=== PATIENT | male | born 1940 | race African-American/Black ===

== ENCOUNTER 2021-06-22 14:05 | Emergency (ER) | payer OTHER ==
--- NOTE | 2021-06-22 15:48 | RAD REPORT ---
EXAM DESCRIPTION: RAD - Chest Single View - 06/22/2021 3:33 pm CLINICAL HISTORY: covid;Dyspnea Chest pain. COMPARISON: No comparisons FINDINGS: Portable technique limits examination quality. Moderate lower lobe lung opacities are present, greater on the right, likely related to COVID infecti on. The heart is normal in size. No displaced fractures.Evidence of previous right rotator cuff repai r.
[2021-06-22 16:01] LABS: Absolute Lymphocytes (CBC) 0.5 K/uL (0.7-4.9); Basophils % 0.1 % (0-1.3); Hematocrit 40.8 % (39.6-49.0); Lymphocytes % 4.4 % (15.3-44.8); MPV 8.2 fL (7.6-11.3)
[2021-06-22 16:18] LABS: ALT/SGPT 49 U/L (12-78); AST/SGOT 61 U/L (15-37); Alkaline Phosphatase 67 U/L (45-117); BUN Blood Urea Nitrogen 12 mg/dL (7-18); Bicarbonate 25 mmol/L (21-32); Bilirubin Direct 0.2 mg/dL (0-0.2); Bilirubin Total 0.6 mg/dL (0.2-1.0); Glucose Level 135 mg/dL (74-106); Magnesium 2.1 mg/dL (1.8-2.4); Potassium 3.5 mmol/L (3.5-5.1); Protein, Total 7.7 g/dL (6.4-8.2); Sodium Level 126 mmol/L (136-145)
[2021-06-22] MEDS ORDERED: CASIRIVIMAB/IMDEVIMAB 10 ML VIAL ONE (16:43)
[2021-06-22] MEDS ORDERED: NA CHLORIDE 0.9% 250 ML ONE (16:43)
--- NOTE | 2021-06-22 18:11 | ER ---
Nurse's Notes [facility] Name: Megan Cardoso Age: 80 yrs Sex: Male : 1940 Arrival Date: 06/22/2021 Time: 14:11 Bed 20 Private MD: Diagnosis: Pneumonia due to SARS-associated coronavirus Presentation: 06/22 14:37 Chief complaint: Patient states: SOB, Cough x 7 days. COVID + 06/20. Coronavirus kg screen: Vaccine status: Patient reports receiving the 2nd dose of the covid vaccine. Date October 18, 2020 [employer] Patient reports receiving the 1st dose of the Covid vaccine. Date October 28, 2020 [employer] Client denies travel out of the [place] in the last 14 days. cough unrelated to allergies, shortness of breath, Client presents with at least one sign or symptom that may indicate coronavirus-19. Standard/surgical mask placed on the client. Provider contacted for isolation considerations. Client reports previous positive COVID test result. Date of collection: June 20, 2021. Ebola Screen: Patient negative for fever greater than or equal to 101.5 degrees Fahrenheit, and additional compatible Ebola Virus Disease symptoms Patient denies exposure to infectious person. Patient denies travel to an Ebola-affected area in the 21 days before illness onset. Initial Sepsis Screen: Does the patient meet any 2 criteria? No. Patient's initial sepsis screen is negative. Does the patient have a suspected source of infection? No. Patient's initial sepsis screen is negative. Risk Assessment: Do you want to hurt yourself or someone else? Patient reports no desire to harm self or others. Onset of symptoms was June 19, 2021. 14:37 Method Of Arrival: Ambulatory kg 14:37 Acuity: CHAVA 3 kg Triage Assessment: 14:47 General: Appears in no apparent distress. Behavior is calm, cooperative, appropriate kg for age, quiet. 14:47 Respiratory: Reports shortness of breath at rest on exertion cough that is Onset: The kg symptoms/episode began/occurred gradually, the patient has mild shortness of breath. Historical: - Allergies: 14:41 No Known Allergies; kg - Home Meds: 14:41 HCTZ [Active]; metformin Oral [Active]; kg - PMHx: 14:41 Hypertensive disorder; Hypercholesterolemia; Diabetes mellitus; kg - PSHx: 14:41 None; kg - Immunization history:: Adult Immunizations up to date, Client reports receiving the 2nd dose of the Covid vaccine, Date received: November 18, 2020 [employer] Client reports receiving the 1st dose of the Covid vaccine, October 28, 2020 [employer]. - Social history:: Smoking status: Patient denies any tobacco usage or history of. Screenin:45 Abuse screen: Denies threats or abuse. Denies injuries from another. Nutritional kg screening: No deficits noted. Tuberculosis screening: No symptoms or risk factors identified. Fall Risk None identified. Assessment: 14:45 Pain: Denies pain. Cardiovascular: No deficits noted. Respiratory: Airway is patent kg Trachea midline Respiratory effort is even, Respiratory pattern is tachypnea. 15:01 Reassessment: Patient and/or family updated on plan of care and expected duration. Pain es2 level reassessed. Patient is alert, oriented x 3, equal unlabored respirations, skin warm/dry/pink. Patient denies pain at this time. General: Appears well groomed, well developed, well nourished, Behavior is calm, cooperative, appropriate for age. Neuro: Level of Consciousness is awake, alert, obeys commands, Oriented to person, place, time, situation, Appropriate for age Gait is steady, Speech is normal. Cardiovascular: Rhythm is sinus tachycardia. Respiratory: Airway is patent Respiratory effort is even, Respiratory pattern is regular. : No signs and/or symptoms were reported regarding the genitourinary system. EENT: No signs and/or symptoms were reported regarding the EENT system. Derm: No signs and/or symptoms reported regarding the dermatologic system. Vital Signs: 14:37 BP 151 / 74; Pulse 112; Resp 35 S; Temp 98.9(TE); Pulse Ox 92% on R/A; Weight 82.55 kg kg (R); Height 5 ft. 8 in. (172.72 cm) (R); Pain 0/10; 15:00 BP 148 / 4; Pulse 110; Resp 28; Pulse Ox 97% on R/A; es2 17:11 BP 143 / 63; Pulse 100; Resp 24; Pulse Ox 97% on R/A; es2 18:53 BP 155 / 72; Pulse 102; Resp 28; Pulse Ox 94% on R/A; es2 14:37 Body Mass Index 27.67 (82.55 kg, 172.72 cm) kg ED Course: 14:11 Patient arrived in ED. mr 14:41 Triage completed. kg 14:45 Patient has correct armband on for positive identification. Placed in gown. Bed in low kg position. Call light in reach. Side rails up X2. Adult w/ patient. 14:45 No provider procedures requiring assistance completed. kg 14:54 Joceline Guerrero RN is Primary Nurse. es2 15:03 Arm band placed on. es2 15:05 Angel Bro PA is PHCP. jr8 15:05 Javier Cervantes MD is Attending Physician. jr8 15:33 XRAY Chest (1 view) In Process Unspecified. EDMS 15:58 Inserted saline lock: 20 gauge in right antecubital area, using aseptic technique. es2 Blood collected. 15:59 Basic Metabolic Panel Sent. es2 15:59 CBC with Diff Sent. es2 15:59 LFT's Sent. es2 15:59 Magnesium Sent. es2 19:51 IV discontinued, intact, bleeding controlled, No redness/swelling at site. bs2 Administered Medications: 17:04 Drug: REGEN-COV Dose Pack 120 mg/mL-120 mg/mL (EUA) 600 mg Route: IV; Rate: calculated es2 rate; Site: right antecubital; 18:04 Follow up: Response: No adverse reaction; IV Status: Completed infusion es2 18:04 Drug: NS 0.9% 1000 ml Route: IV; Rate: 1000 ml; Site: right antecubital; es2 18:54 Follow up: Response: No adverse reaction es2 18:54 Follow up: IV Status: Completed infusion es2 Outcome: 18:10 Discharge ordered by . jr8 19:51 Discharged to home ambulatory, with family. bs2 19:51 Condition: improved 19:51 Discharge instructions given to patient, family, Instructed on discharge instructions, follow up and referral plans. Demonstrated understanding of instructions, follow-up care. 19:52 Patient left the ED. bs2 Signatures: Dispatcher [employer] [facility] Kylie Marquez mr Angel Bro PA PA jr8 Madelaine Silverio RN RN kg Teresa Guerrero RN RN bs2 Joceline Guerrero RN RN es2
--- NOTE | 2021-06-22 18:11 | EDPHYS ---
Physician Documentation [facility] Name: Megan Cardoso Age: 80 yrs Sex: Male : 1940 Arrival Date: 06/22/2021 Time: 14:11 Bed 20 Private MD: ED Physician Javier Cervantes HPI: 06/22 15:41 This 80 yrs old Black Male presents to ER via Ambulatory with complaints of Covid+, jr8 Shortness Of Breath, Cough. 15:41 The patient has shortness of breath with light activity. Onset: The symptoms/episode jr8 began/occurred gradually, 1 week(s) ago. Duration: The symptoms are continuous. The patient's shortness of breath is aggravated by light activity, walking. Associated signs and symptoms: The patient has no apparent associated signs or symptoms. Severity of symptoms: At their worst the symptoms were moderate in the emergency department the symptoms are unchanged. The patient has not experienced similar symptoms in the past. The patient has not recently seen a physician. Stated that he was recently diagnosed with Covid but has had symptoms for the past week. Came in today because he has had continued shortness of breath with light activity.. Historical: - Allergies: 14:41 No Known Allergies; kg - Home Meds: 14:41 HCTZ [Active]; metformin Oral [Active]; kg - PMHx: 14:41 Hypertensive disorder; Hypercholesterolemia; Diabetes mellitus; kg - PSHx: 14:41 None; kg - Immunization history:: Adult Immunizations up to date, Client reports receiving the 2nd dose of the Covid vaccine, Date received: November 18, 2020 [employer] Client reports receiving the 1st dose of the Covid vaccine, October 28, 2020 [employer]. - Social history:: Smoking status: Patient denies any tobacco usage or history of. ROS: 15:41 Eyes: Negative for injury, pain, redness, and discharge, ENT: Negative for injury, jr8 pain, and discharge, Neck: Negative for injury, pain, and swelling, Cardiovascular: Negative for chest pain, palpitations, and edema, Abdomen/GI: Negative for abdominal pain, nausea, vomiting, diarrhea, and constipation, Back: Negative for injury and pain, MS/Extremity: Negative for injury and deformity, Skin: Negative for injury, rash, and discoloration, Neuro: Negative for headache, weakness, numbness, tingling, and seizure. 15:41 Respiratory: Positive for cough, shortness of breath. Exam: 15:41 Constitutional: This is a well developed, well nourished patient who is awake, alert, jr8 and in no acute distress. Eyes: Pupils equal round and reactive to light, extra-ocular motions intact. Lids and lashes normal. Conjunctiva and sclera are non-icteric and not injected. Cornea within normal limits. Periorbital areas with no swelling, redness, or edema. ENT: Nares patent. No nasal discharge, no septal abnormalities noted. Tympanic membranes are normal and external auditory canals are clear. Oropharynx with no redness, swelling, or masses, exudates, or evidence of obstruction, uvula midline. Mucous membranes moist. Neck: Trachea midline, no thyromegaly or masses palpated, and no cervical lymphadenopathy. Supple, full range of motion without nuchal rigidity, or vertebral point tenderness. No Meningismus. Abdomen/GI: Soft, non-tender, with normal bowel sounds. No distension or tympany. No guarding or rebound. No evidence of tenderness throughout. Back: No spinal tenderness. No costovertebral tenderness. Full range of motion. Skin: Warm, dry with normal turgor. Normal color with no rashes, no lesions, and no evidence of cellulitis. MS/ Extremity: Pulses equal, no cyanosis. Neurovascular intact. Full, normal range of motion. Neuro: Awake and alert, GCS 15, oriented to person, place, time, and situation. Cranial nerves II-XII grossly intact. Motor strength 5/5 in all extremities. Sensory grossly intact. 15:41 Cardiovascular: Rate: tachycardic, Rhythm: regular, Pulses: Pulses are 2+ in right radial artery and left radial artery. Heart sounds: normal, normal S1and S2, no S3 or S4, no murmur, no rub, no gallop, Edema: is not appreciated. 15:41 Respiratory: the patient does not display signs of respiratory distress, Respirations: tachypnea, that is mild, Breath sounds: are clear throughout, no bronchial sounds, no decreased breath sounds, no rales, rhonchi, no stridor, no wheezing. Vital Signs: 14:37 BP 151 / 74; Pulse 112; Resp 35 S; Temp 98.9(TE); Pulse Ox 92% on R/A; Weight 82.55 kg kg (R); Height 5 ft. 8 in. (172.72 cm) (R); Pain 0/10; 15:00 BP 148 / 4; Pulse 110; Resp 28; Pulse Ox 97% on R/A; es2 17:11 BP 143 / 63; Pulse 100; Resp 24; Pulse Ox 97% on R/A; es2 18:53 BP 155 / 72; Pulse 102; Resp 28; Pulse Ox 94% on R/A; es2 14:37 Body Mass Index 27.67 (82.55 kg, 172.72 cm) kg MDM: 15:06 Patient medically screened. 18:09 Data reviewed: vital signs, nurses notes, lab test result(s), radiologic studies, [facility] films, and as a result, I will discharge patient. Data interpreted: Pulse oximetry: on room air is 97 %. Interpretation: normal. Counseling: I had a detailed discussion with the patient and/or guardian regarding: the historical points, exam findings, and any diagnostic results supporting the discharge/admit diagnosis, lab results, radiology results, the need for outpatient follow up, a family practitioner, to return to the emergency department if symptoms worsen or persist or if there are any questions or concerns that arise at home. 06/22 15:11 Order name: Basic Metabolic Panel; Complete Time: 16:19 06/22 15:11 Order name: CBC with Diff 06/22 15:11 Order name: LFT's; Complete Time: 16:19 06/22 15:11 Order name: Magnesium; Complete Time: 16:19 06/22 15:11 Order name: XRAY Chest (1 view); Complete Time: 16:08 06/22 15:11 Order name: EKG; Complete Time: 15:12 06/22 15:11 Order name: Cardiac monitoring; Complete Time: 15:40 06/22 15:11 Order name: EKG - Nurse/Tech; Complete Time: 15:39 06/22 15:11 Order name: IV Saline Lock; Complete Time: 15:59 06/22 15:11 Order name: Labs collected and sent; Complete Time: 15:59 06/22 15:11 Order name: O2 Per Protocol 06/22 15:11 Order name: O2 Sat Monitoring jr8 Administered Medications: 17:04 Drug: REGEN-COV Dose Pack 120 mg/mL-120 mg/mL (EUA) 600 mg Route: IV; Rate: calculated es2 rate; Site: right antecubital; 18:04 Follow up: Response: No adverse reaction; IV Status: Completed infusion es2 18:04 Drug: NS 0.9% 1000 ml Route: IV; Rate: 1000 ml; Site: right antecubital; es2 18:54 Follow up: Response: No adverse reaction es2 18:54 Follow up: IV Status: Completed infusion es2 Disposition: 06/23 11:14 Co-signature as Attending Physician, Javier Cervantes MD I agree with the assessment and kdr plan of care. Disposition Summary: 06/22/21 18:10 Discharge Ordered Location: Home jr8 Problem: new jr8 Symptoms: have improved jr8 Condition: Stable jr8 Diagnosis - Pneumonia due to SARS-associated coronavirus jr8 Followup: jr8 - With: Private Physician - When: 5 - 6 days - Reason: Recheck today's complaints, Continuance of care, Re-evaluation by your physician Discharge Instructions: - Discharge Summary Sheet jr8 - COVID-19 jr8 Forms: - Medication Reconciliation Form jr8 - Thank You Letter jr8 - Antibiotic Education jr8 - Prescription Opioid Use jr8 Signatures: Dispatcher [employer] EDJavier Ross MD MD kdr Roszak, Josh, PA PA jr8 Madelaine Silverio RN RN Joceline Beltran RN RN es2
[2021-06-22] MEDS ORDERED: NA CHLORIDE 0.9% 1,000 ML ONE (18:24)
[2021-06-22 20:10] VITALS: TEMP 98.9
[2021-06-22 20:13] VITALS: BP 155/72; O2SAT 94
[2021-06-22 21:46] LABS: Blood Morphology Comment NOT SEEN (NOT SEEN); Platelet Estimate ADEQ; White Blood Cell Scan OK (OK)
--- NOTE | 2021-06-23 15:58 | EKG ---
Test Date: 2021-06-22 Test Time: 15:39:02 Landfill Attendant: NAMAN MEASUREMENT RESULTS: Intervals: Rate: 108 [place]: 152 QRSD: 134 QT: 344 QTc: 460 [place]: P: 61 [place]: 152 QRS: 62 T: 46 INTERPRETIVE STATEMENTS: Sinus tachycardia Possible Left atrial enlargement Right bundle branch block Abnormal ECG Compared to ECG 03/13/2007 10:10:00 Right bundle-branch block now present Sinus rhythm no longer present T-wave abnormality no longer present Possible ischemia no longer present Electronically Signed On 06-23-21 15:56:27 CDT by Villa Akbar
== END 2021-06-22 19:52 | disposition home or self-care (01) ==
LOC: ER 14:05
DX: U07.1 COVID-19 (principal); J12.82 Pneumonia due to coronavirus disease 2019; I10 Essential (primary) hypertension; E11.9 Type 2 diabetes mellitus without complications
CPT/HCPCS: 96365; 96361; 93005; 85025; 80048; 36415; 83735; 80076; 71045; 99284; J7050; J7030

== ENCOUNTER 2021-06-25 14:37 | Inpatient (IN) | payer OTHER ==
[2021-06-25 15:27] LABS: Absolute Lymphocytes (CBC) 1.2 K/uL (0.7-4.9); Basophils % 0.1 % (0-1.3); Hematocrit 42.1 % (39.6-49.0); Lymphocytes % 10.2 % (15.3-44.8); MPV 8.4 fL (7.6-11.3); RBC Red Blood Cell Count 4.99 M/uL (4.33-5.43)
--- NOTE | 2021-06-25 15:41 | RAD REPORT ---
EXAM DESCRIPTION: RAD - Chest Single View - 06/25/2021 3:33 pm CLINICAL HISTORY: SOB COMPARISON: Chest Single View dated 06/22/2021 FINDINGS: Lines: None. Lungs: Increasing basilar airspace disease bilaterally. Pleural: No significant pleural effusions or pneumothorax. Cardiac: The heart size is within normal limits. Bones: No acute fractures. Other: IMPRESSION: Increasing basilar airspace disease compared 06/22/2021 concerning for pneumonia.
[2021-06-25 15:51] LABS: ALT/SGPT 94 U/L (12-78); AST/SGOT 96 U/L (15-37); Albumin 2.6 g/dL (3.4-5.0); Alkaline Phosphatase 106 U/L (45-117); BUN Blood Urea Nitrogen 9 mg/dL (7-18); Bicarbonate 23 mmol/L (21-32); Bilirubin Direct 0.3 mg/dL (0-0.2); Bilirubin Total 0.9 mg/dL (0.2-1.0); Glucose Level 164 mg/dL (74-106); Lipase 252 U/L (73-393); Potassium 3.3 mmol/L (3.5-5.1); Protein, Total 7.7 g/dL (6.4-8.2); Sodium Level 125 mmol/L (136-145); Troponin (Emerg Dept Use Only) < 0.02 ng/mL (0.0-0.045)
[2021-06-25] MEDS ORDERED: ASPIRIN 325 MG TAB ONE (15:58)
[2021-06-25] MEDS ORDERED: NA CHLORIDE 0.9% 1,000 ML ONE ×2 (15:59→17:15)
--- NOTE | 2021-06-25 16:05 | ER ---
Nurse's Notes [facility] Name: Megan Cardoso Age: 80 yrs Sex: Male : 1940 Arrival Date: 06/25/2021 Time: 14:37 Bed 17 Private MD: Diagnosis: Pneumonia due to SARS-associated coronavirus;Hypoxia Presentation: 06/25 14:40 Chief complaint: Cough, SOB, N/D, and fever x 10 days, tested COVID + 06/21, c/o hb worsening SOB x 2 days. Today home SpO2 72%, TMAX 101. Coronavirus screen: Client presents with at least one sign or symptom that may indicate coronavirus-19. Client reports previous positive COVID test result. Ebola Screen: No symptoms or risks identified at this time. Onset of symptoms was June 14, 2021. 14:40 Method Of Arrival: Wheelchair hb 14:40 Acuity: CHAVA 2 hb 14:43 Initial Sepsis Screen: Does the patient meet any 2 criteria?. Risk Assessment: Do you hb want to hurt yourself or someone else? Patient reports no desire to harm self or others. 20:37 Initial Sepsis Screen: Does the patient have a suspected source of infection? Yes: bs2 Other: Covid pneumonia. Triage Assessment: 20:37 General: Appears in no apparent distress. distressed, uncomfortable, obese, well bs2 groomed, well developed, well nourished. Respiratory: Reports shortness of breath at rest Onset: The symptoms/episode began/occurred gradually, the patient has moderate shortness of breath. Historical: - Allergies: 14:43 No Known Allergies; hb - Home Meds: 14:43 hctz [Active]; Metformin Oral [Active]; hb - PMHx: 14:43 diabetes mellitus; Hypercholesterolemia; Hypertensive disorder; hb - Immunization history:: Adult Immunizations up to date, Client reports receiving the 2nd dose of the Covid vaccine. - Social history:: Smoking status: Patient denies any tobacco usage or history of. Screenin:28 Abuse screen: Denies threats or abuse. Nutritional screening: No deficits noted. kh1 Tuberculosis screening: No symptoms or risk factors identified. Fall Risk None identified. No fall in past 12 months (0 pts). No secondary diagnosis (0 pts). IV access (20 points). Ambulatory Aid- None/Bed Rest/Nurse Assist (0 pts). Gait- Weak (10 pts.). Mental Status- Oriented to own ability (0 pts). Assessment: 15:27 General: Appears distressed, uncomfortable, Behavior is calm, cooperative, appropriate kh1 for age. Pain: Denies pain. Cardiovascular: No deficits noted. Reports shortness of breath. Respiratory: Airway is patent Respiratory effort is even, labored, Respiratory pattern is regular, 16:38 Reassessment: Patient appears in no apparent distress at this time. No changes from kh1 previously documented assessment. Patient and/or family updated on plan of care and expected duration. Pain level reassessed. Patient is alert, oriented x 3, equal unlabored respirations, skin warm/dry/pink. Patient states feeling better. Patient states symptoms have improved. 20:38 Cardiovascular: Rhythm is regular. bs2 Vital Signs: 14:40 BP 182 / 81; Pulse 120; Resp 28; Temp 99.4; Pulse Ox 66% on R/A; Pain 0/10; hb 15:29 BP 182 / 81; Pulse 120; Resp 28; Temp 99.4; Pulse Ox 99% on Non-rebreather mask; kh1 16:46 BP 175 / 104; Pulse 90; Resp 28; Temp 99.0; Pulse Ox 95% on NC; kh1 ED Course: 14:37 Patient arrived in ED. as 14:42 Triage completed. hb 14:43 Arm band placed on. hb 14:54 Carter Quintanilla NP is PHCP. pm1 14:54 Derek Jacobs MD is Attending Physician. pm1 15:08 EKG done, by ED staff, reviewed by Carter Quintanilla NP. em1 15:27 Sheridan Maria is Primary Nurse. kh1 15:28 No provider procedures requiring assistance completed. Inserted saline lock: 20 gauge kh1 in right antecubital area, using aseptic technique. Blood collected. 15:29 Blood Culture Sent. kh1 15:29 Basic Metabolic Panel Sent. kh1 15:30 BMP Sent. kh1 15:30 Blood Culture Adult (2) Sent. kh1 15:30 CXR XRAY Sent. kh1 15:30 C-Reactive Protein Sent. kh1 15:30 CBC with Diff Sent. kh1 15:30 D-Dimer Sent. kh1 15:30 Flu Sent. kh1 15:30 Ferritin Sent. kh1 15:30 LFT's Sent. kh1 15:30 Lactate Sent. kh1 15:30 Lipase Sent. kh1 15:30 PT-INR Sent. kh1 15:30 Procalcitonin Sent. kh1 15:30 Ptt, Activated Sent. kh1 15:30 Strep Sent. kh1 15:30 Troponin (emerg Dept Use Only) Sent. kh1 15:33 CXR XRAY In Process Unspecified. EDMS 16:04 Seven Butts DO is Hospitalizing Provider. pm1 16:39 Throat Culture Sent. kh1 16:39 D-Dimer Sent. kh1 16:39 PT-INR Sent. kh1 16:39 Ptt, Activated Sent. kh1 17:52 Marc Solorzano MD is Hospitalizing Provider. em1 20:37 Patient has correct armband on for positive identification. Bed in low position. bs2 housekeeper on. Pulse ox on. NIBP on. 20:38 Patient admitted, IV remains in place. bs2 20:38 CBC with Automated Diff Sent. bs2 Administered Medications: 15:56 Drug: NS 0.9% 1000 ml Route: IV; Rate: 1000 ml; Site: right antecubital; kh1 20:39 Follow up: IV Status: Completed infusion bs2 15:56 Drug: Aspirin 325 mg Route: PO; kh1 16:46 Drug: Potassium Effervescent Tablet 50 mEq Route: PO; kh1 20:39 Follow up: Response: No adverse reaction bs2 16:57 Drug: NS 0.9% 1000 ml Route: IV; Rate: 100 ml/hr; Site: right antecubital; kh1 20:39 Follow up: IV Status: Completed infusion bs2 Outcome: 16:04 Decision to Hospitalize by Provider. pm1 20:34 Admitted to Med/surg accompanied by nurse, via stretcher, room 409, with oxygen, with bs2 chart, Report called to Elizabeth Charge nurse took report 20:34 Condition: improved 20:34 Instructed on the need for admit. 21:47 Patient left the ED. lp1 Signatures: Dispatcher [employer] EDMS Jessie Liz Eric em1 Viridiana Lo RN RN lp1 Carter Quintanilla, PROFESSOR OF HISTORY PROFESSOR OF HISTORY pm1 Sheila Tovar RN RN hb Smith, Bridget, RN RN bs2 Sheridan Maria kh1
--- NOTE | 2021-06-25 16:05 | EDPHYS ---
Physician Documentation [facility] Name: Megan Cardoso Age: 80 yrs Sex: Male : 1940 Arrival Date: 06/25/2021 Time: 14:37 Bed 17 Private MD: ED Physician Derek Jacobs HPI: 06/25 15:02 This 80 yrs old Black Male presents to ER via Wheelchair with complaints of Shortness pm1 Of Breath - covid pneumonia. 15:02 The patient has shortness of breath at rest. Onset: The symptoms/episode began/occurred pm1 Patient went onset of Covid symptoms, cough and congestion, 11 days ago. Tested positive for Covid 4 days ago and seen in the ER here the following day. Patient was subsequently diagnosed with Covid pneumonia, administered Regeneron, and discharged home. Patient returned to the ER with complaints of shortness of breath and low oxygen pulse ox readings at home 70s to 80s. Duration: The symptoms are continuous, and are steadily getting worse. The patient's shortness of breath is alleviated by nothing. Associated signs and symptoms: Pertinent negatives: chest pain, nausea, vomiting, Diarrhea. Severity of symptoms: in the emergency department the symptoms are worse. The patient has been recently seen at the [facility] Emergency Department, this week, for similar complaints labs were performed, X-rays were performed. Historical: - Allergies: 14:43 No Known Allergies; hb - Home Meds: 14:43 hctz [Active]; Metformin Oral [Active]; hb - PMHx: 14:43 diabetes mellitus; Hypercholesterolemia; Hypertensive disorder; hb - Immunization history:: Adult Immunizations up to date, Client reports receiving the 2nd dose of the Covid vaccine. - Social history:: Smoking status: Patient denies any tobacco usage or history of. ROS: 15:02 Eyes: Negative for injury, pain, redness, and discharge, ENT: Negative for injury, pm1 pain, and discharge, Cardiovascular: Negative for chest pain, palpitations, and edema. 15:02 Abdomen/GI: Negative for abdominal pain, nausea, vomiting, diarrhea, and constipation, Back: Negative for injury and pain, MS/Extremity: Negative for injury and deformity, Skin: Negative for injury, rash, and discoloration, Neuro: Negative for headache, weakness, numbness, tingling, and seizure. 15:02 Constitutional: Positive for poor PO intake. 15:02 Respiratory: Positive for cough, shortness of breath. 15:02 All other systems are negative. Exam: 15:02 Constitutional: This is a well developed, well nourished patient who is awake, alert, pm1 and in no acute distress. Head/Face: Normocephalic, atraumatic. 15:02 Skin: Warm, dry with normal turgor. Normal color with no rashes, no lesions, and no evidence of cellulitis. MS/ Extremity: Pulses equal, no cyanosis. Neurovascular intact. Full, normal range of motion. 15:02 Cardiovascular: Rate: tachycardic, Rhythm: regular, Pulses: no pulse deficits are appreciated, Heart sounds: normal, normal S1and S2, Edema: is not appreciated. 15:02 Respiratory: mild respiratory distress is noted, Respirations: tachypnea, Breath sounds: decreased breath sounds, are located in both bases. 15:02 Abdomen/GI: Inspection: abdomen appears normal, Palpation: abdomen is soft and non-tender, in all quadrants. 15:02 Neuro: Exam negative for acute changes, Orientation: is normal, Mentation: is normal, Motor: is normal, moves all fours. Vital Signs: 14:40 BP 182 / 81; Pulse 120; Resp 28; Temp 99.4; Pulse Ox 66% on R/A; Pain 0/10; hb 15:29 BP 182 / 81; Pulse 120; Resp 28; Temp 99.4; Pulse Ox 99% on Non-rebreather mask; kh1 16:46 BP 175 / 104; Pulse 90; Resp 28; Temp 99.0; Pulse Ox 95% on NC; kh1 MDM: 15:02 ED course: Patient with diagnoses of Covid pneumonia 3 days ago. Therefore no pm1 antibiotic needed at this time. 15:08 Patient medically screened. pm1 15:54 Physician consultation: David Sosa regarding admission, patient's condition, in the pm1 emergency department to see patient at 15:54. 16:02 Data reviewed: vital signs. pm1 16:02 Counseling: I had a detailed discussion with the patient and/or guardian regarding: the pm1 historical points, exam findings, and any diagnostic results supporting the discharge/admit diagnosis, the need for further work-up and treatment in the hospital. 16:26 ED course: Patient does not want to be transferred to the [place]. He would like to be pm1 admitted to the hospital here. 06/25 14:56 Order name: BMP pm1 06/25 14:56 Order name: Blood Culture Adult (2) pm1 06/25 14:56 Order name: C-Reactive Protein; Complete Time: 16:11 pm1 06/25 14:56 Order name: CBC with Diff; Complete Time: 15:54 pm1 06/25 14:56 Order name: D-Dimer; Complete Time: 17:11 pm1 06/25 14:56 Order name: Ferritin; Complete Time: 16:11 pm1 06/25 14:56 Order name: Flu; Complete Time: 16:13 pm1 06/25 14:56 Order name: LFT's; Complete Time: 16:11 pm1 06/25 14:56 Order name: Lactate; Complete Time: 16:33 pm1 06/25 14:56 Order name: Lipase; Complete Time: 16:11 pm1 06/25 14:56 Order name: PT-INR; Complete Time: 17:11 pm1 06/25 14:56 Order name: Procalcitonin; Complete Time: 16:11 pm1 06/25 14:56 Order name: Ptt, Activated; Complete Time: 17:11 pm1 06/25 14:56 Order name: Strep; Complete Time: 16:11 pm1 06/25 14:56 Order name: Troponin (emerg Dept Use Only); Complete Time: 16:11 pm1 06/25 14:56 Order name: Urine Microscopic Only; Complete Time: 16:40 pm1 06/25 14:56 Order name: Basic Metabolic Panel; Complete Time: 16:11 EDMS 06/25 14:56 Order name: Blood Culture EDMS 06/25 15:33 Order name: COVID-19 : Document "Date of Symptom Onset" if Symptomatic. pm1 06/25 15:56 Order name: Throat Culture EDMS 06/25 16:59 Order name: SARS-COV-2 RT PCR; Complete Time: 17:11 EDMS 06/25 17:24 Order name: Comprehensive Metabolic Panel EDMS 06/25 17:24 Order name: Comprehensive Metabolic Panel EDNM 06/25 17:24 Order name: Comprehensive Metabolic Panel EDMS 06/25 17:24 Order name: Comprehensive Metabolic Panel EDMS 06/25 17:24 Order name: Lactate EDMS 06/25 17:24 Order name: Lactate EDMS 06/25 17:24 Order name: Lactate EDMS 06/25 17:24 Order name: Magnesium EDMS 06/25 14:56 Order name: CXR XRAY; Complete Time: 15:54 pm1 06/25 14:56 Order name: EKG; Complete Time: 14:57 pm1 06/25 14:56 Order name: Cardiac monitoring; Complete Time: 15:30 pm1 06/25 14:56 Order name: Droplet/Contact Precautions; Complete Time: 15:30 pm1 06/25 14:56 Order name: EKG - Nurse/Tech; Complete Time: 15:07 pm1 06/25 14:56 Order name: IV Start; Complete Time: 15:30 pm1 06/25 14:56 Order name: Labs collected and sent; Complete Time: 15:30 pm1 06/25 14:56 Order name: O2 Per Protocol; Complete Time: 15:30 pm1 06/25 14:56 Order name: O2 Sat Monitoring; Complete Time: 15:30 pm1 06/25 14:56 Order name: Urine Dipstick-Ancillary (obtain specimen); Complete Time: 15:30 pm1 06/25 17:24 Order name: Chest For Pe Angio; Complete Time: 18:10 EDMS 06/25 17:24 Order name: Regular EDMS 06/25 17:24 Order name: Magnesium EDMS 06/25 17:24 Order name: Magnesium EDMS 06/25 17:24 Order name: Magnesium EDMS 06/25 17:25 Order name: Urinalysis EDMS 06/25 17:25 Order name: CBC with Automated Diff EDMS 06/25 17:25 Order name: CBC with Automated Diff EDMS 06/25 17:25 Order name: CBC with Automated Diff EDMS 06/25 17:25 Order name: CBC with Automated Diff EDMS 06/25 18:22 Order name: Procalcitonin EDMS 06/25 19:00 Order name: Sodium Level EDMS 06/25 19:00 Order name: Potassium EDMS 06/25 19:11 Order name: Lactate Sepsis 2 HR Follow-up EDMS 06/25 21:31 Order name: Glucose, Ancillary Testing EDMS Administered Medications: 15:56 Drug: NS 0.9% 1000 ml Route: IV; Rate: 1000 ml; Site: right antecubital; kh1 20:39 Follow up: IV Status: Completed infusion bs2 15:56 Drug: Aspirin 325 mg Route: PO; kh1 16:46 Drug: Potassium Effervescent Tablet 50 mEq Route: PO; kh1 20:39 Follow up: Response: No adverse reaction bs2 16:57 Drug: NS 0.9% 1000 ml Route: IV; Rate: 100 ml/hr; Site: right antecubital; kh1 20:39 Follow up: IV Status: Completed infusion bs2 Disposition Summary: 06/25/21 16:04 Hospitalization Ordered Hospitalization Status: Inpatient Admission pm1 Location: Telemetry/MedSurg (Inpatient) pm1 Condition: Stable pm1 Problem: new pm1 Symptoms: have improved pm1 Bed/Room Type: Standard pm1 Room Assignment: [facility](06/25/21 17:47) eb Provider: Marc Solorzano(06/25/21 17:53) em1 Diagnosis - Pneumonia due to SARS-associated coronavirus pm1 - Hypoxia pm1 Forms: - Medication Reconciliation Form pm1 - SBAR form pm1 Addendum: 06/30/2021 02:58 Co-signature as Attending Physician, Derek Jacobs MD PA/CLINICAL IMPLEMENTATION SPECIALIST's history reviewed, m a2 patient interviewed, and examined. I agree with assessment and care plan and confirm the diagnosis (es) above. Signatures: Dispatcher [employer] EDNM Shorty Liz em1 Carter Quintanilla NP CLINICAL IMPLEMENTATION SPECIALIST pm1 Sheila Tovar RN RN Derek Jacobs MD MD ma2 Joceline Duvall Kecia 1 Teresa Guerrero RN bs2 Corrections: (The following items were deleted from the chart) 06/25 15:56 15:33 CORONAVIRUS ordered. EDNM EDMS 17:47 16:04 pm1 eb 17:53 16:04 [place] pm1 em1
[2021-06-25 16:19] LABS: Protime INR 1.11
[2021-06-25 16:34] LABS: Urine Bacteria <20 /HPF (NONE SEEN); Urine RBC <5 /HPF (NONE SEEN)
[2021-06-25 16:35] LABS: Urine Mucus 1+ /HPF (NONE SEEN)
[2021-06-25] MEDS ORDERED: POTASSIUM 25 MEQ EFFERV TAB ONE (17:07)
[2021-06-25] MEDS ORDERED: ONDANSETRON 4 MG/2 ML VIAL IV PRN ×2 (17:12→20:18)
[2021-06-25] MEDS ORDERED: ACETAMINOPHEN 500 MG TAB PO PRN ×2 (17:12→20:18)
[2021-06-25] MEDS ORDERED: NA CHLORIDE 0.9% 1,000 ML IV SCH (18:00)
--- NOTE | 2021-06-25 18:00 | P.HP ---
Certification for Inpatient Patient admitted to: Inpatient With expected LOS: >2 Midnights Patient will require the following post-hospital care: None Practitioner: I am a practitioner with admitting privileges, knowledge of patient current condition, hospital course, and medical plan of care. Services: Services provided to patient in accordance with Admission requirements found in Title 42 Section 412.3 of the Code of Federal Regulations Patient History Date of Service: 06/25/21 Primary Care Provider: Dr Herrera at [place] Reason for admission: Covid Pneumonia/ hypoxia History of Present Illness: Chest Single View - 06/25/2021 3:33 pm CLINICAL HISTORY: SOB COMPARISON: Chest Single View dated 06/22/2021 FINDINGS: Lines: None. Lungs: Increasing basilar airspace disease bilaterally. Pleural: No significant pleural effusions or pneumothorax. Cardiac: The heart size is within normal limits. Bones: No acute fractures. Other: IMPRESSION: Increasing basilar airspace disease compared 06/22/2021 concerning for pneumonia. This is a 80-year-old black male who came in with Covid pneumonia. He first developed covid like symptoms on June 14. On 21 June he was tested for Covid and found to be positive. On the he received monoclonal antibodies at this facility. He presents today with O2 sats of 66% on room air. He had a temp of 99 on arrival but reported 101 at home. Patient is a poor historian but it appears that he has [id number] diabetes and hypertension. On 5 L nasal cannula oxygen his sats were 88%. He was placed on high flow oxygen 15 L and is now at 95%. Patient has not been eating or drinking as well as he should. He is dry and his urine is dark. It was noted also that his sodium was low and his potassium was low. Those are being corrected in the ER. Potassium therapy has been initiated and sodium is being replaced via IV. Both will be checked in 6 hours. The patient is currently without complaints appears well. His D-dimer was 14,191. He is scheduled for CTA of the chest. Allergies No Known Allergies Allergy (Unverified 06/25/21 17:57) Home medications list reviewed: Yes - Past Medical/Surgical History Diabetic: Yes -: Diabetes -: HTN Review of Systems General: Unremarkable Eyes: Unremarkable ENT: Unremarkable Respiratory: Shortness of Breath, SOB with Excertion Cardiovascular: Unremarkable Gastrointestinal: Unremarkable Genitourinary: Unremarkable Musculoskeletal: Unremarkable Integumentary: Unremarkable Neurological: Unremarkable Lymphatics: Unremarkable Physical Examination - Physical Exam General: Alert, Oriented x3, Mild distress, Other (Very [place], poor historian) HEENT: Atraumatic, Normocephalic, PERRLA Neck: Supple, JVD not distended Respiratory: Normal air movement, Crackles/rales (faint crackles) Cardiovascular: No edema, Normal pulses Capillary refill: Brisk Gastrointestinal: Soft and benign, Non-distended Musculoskeletal: No swelling, No contractures, No erythema Integumentary: No rashes, No breakdown, No significant lesion Neurological: Normal strength at 5/5 x4 extr, Normal tone, Sensation intact External genitalia: Deferred Rectal: Deferred - Studies Laboratory Data (last 24 hrs) 06/25/21 14:50: PT 12.8 H, INR 1.11, APTT 25.2 06/25/21 14:50: WBC 11.90 H, Hgb 14.1, Hct 42.1, Plt Count 283 D 06/25/21 14:50: Sodium 125 L, Potassium 3.3 L, BUN 9, Creatinine 0.80, Glucose 164 H, Total Bilirubin 0.9, AST 96 H, ALT 94 H, Alkaline Phosphatase 106 D, Lipase 252 Microbiology Data (last 24 hrs): 06/25/21 15:10 Nasopharnyx Influenza Type A Antigen Screen - Final 06/25/21 15:10 Nasopharnyx Influenza Type B Antigen Screen - Final 06/25/21 15:10 Throat Group A Streptococcus Rapid Screen - Final Assessment and Plan - Plan Assessment: Covid Pneumonia Electrolyte imbalance HTN Diabetes Plan: Covid Pneumonia: CTA of Chest, O2 to keep Sats above 93%, Methylprednisolone 80mg bid, Covid labs. CTA of chest Electrolyte imbalance: Supplement sodium via NS IV, potassium given in ER. Check at 22:00 hours. HTN: Home medications Diabetes: Home medications DVT PPx: Eliquis 5mg bid CODE STATUS: Full Code Discharge Plan: Home Plan to discharge in: Unknown - Advance Directives Does patient have a Living Will: No Does patient have a Durable POA for Healthcare: No - Code Status/Comfort Care Code Status Assessed: Yes Code Status: Full Code Critical Care: No Time Spent Managing Pts Care (In Minutes): 70
--- NOTE | 2021-06-25 18:04 | RAD REPORT ---
EXAM DESCRIPTION: CT - Chest For Pe Angio - 06/25/2021 5:50 pm CLINICAL HISTORY: Rule out PE COMPARISON: Chest Single View dated 06/25/2021 FINDINGS: Chest Wall: Multinodular thyroid. Lungs: Patchy nodular opacities with areas of consolidation air bronchograms. Some of the airspace di sease is perihilar. Pleura: No significant effusions or pneumothorax. Mediastinum/semaj: No pathologic lymphadenopathy. Pulmonary arteries/Aorta: No filling defect identified. No aortic aneurysm. Heart: No significant pericardial effusion. Normal heart size. Upper abdomen: Too small to characterize liver lesions which are statistically benign. Bones: No acute abnormality. All CT scans are performed using dose optimization technique as appropriate and may include automated exposure control or mA/KV adjustment according to patient size. IMPRESSION: Negative for pulmonary embolism. Basilar consolidation and perihilar ground-glass opacit ies with a somewhat atypical appearance for Covid-19 but which could represent cardiogenic edema or o ther etiologies for infection.
[2021-06-25] MEDS ORDERED: BENZONATATE 100 MG CAP PO PRN (20:18)
[2021-06-25] MEDS ORDERED: APIXABAN 5 MG TABLET PO SCH (21:00)
[2021-06-25] MEDS: INSULIN -REGULAR HUMAN 50 UNIT/0.5 ML ML SQ SCH (21:00)
[2021-06-25] MEDS ORDERED: FINASTERIDE 5 MG TAB PO SCH (21:00)
[2021-06-25] MEDS ORDERED: INSULIN -REGULAR HUMAN 50 UNIT/0.5 ML ML SQ SCH (21:00)
[2021-06-25] MEDS: MELATONIN 5 MG TABLET PO PRN (21:21)
[2021-06-25] MEDS: METHYLPREDNISOLONE 40 MG INJ IV SCH (21:22)
[2021-06-25] MEDS: NA CHLORIDE 0.9% 1,000 ML IV SCH (21:22)
[2021-06-25] MEDS: APIXABAN 5 MG TABLET PO SCH (21:22)
[2021-06-25] MEDS: ATORVASTATIN 40 MG TAB PO SCH (21:22)
[2021-06-25] MEDS: ASCORBIC ACID 500 MG TABLET PO SCH (21:22)
[2021-06-25] MEDS ORDERED: lisinopriL 20 MG TAB PO ONE (22:40)
[2021-06-25 22:48] VITALS: BMI 28.0
[2021-06-25 23:53] LABS: Urine Appearance CLEAR (Clear); Urine Bilirubin NEGATIVE (Negative); Urine Blood 1+ (Negative); Urine Color YELLOW (Yellow); Urine Glucose NEGATIVE (Negative); Urine Protein 1+ (Negative); Urine Specific Gravity >=1.030 (1.005-1.030)
[2021-06-26 00:13] LABS: Urine Microscopic Reflex ORDER UMIC
[2021-06-26 00:21] LABS: Urine Bacteria 20-50 /HPF (NONE SEEN)
[2021-06-26] MEDS: NA CHLORIDE 0.9% 1,000 ML IV SCH (06:15)
[2021-06-26 06:22] LABS: Absolute Lymphocytes (CBC) 0.5 K/uL (0.7-4.9); Basophils % 0.2 % (0-1.3); Lymphocytes % 4.7 % (15.3-44.8); MPV 8.5 fL (7.6-11.3)
[2021-06-26] MEDS ORDERED: PANTOPRAZOLE 40MG TABLET PO SCH (06:30)
--- NOTE | 2021-06-26 06:35 | P.PN ---
Date of Service: 06/26/21 Subjective: hard of hearing. States he is improving, feels his breathing is better still requiring HFNC no other complaints ROS: 10 point review of systems otherwise negative Physical exam GEN: Alert, oriented, NAD HEENT: Normal conjunctiva, sclera anicteric, hearing aides in place CV: Regular rate and rhythm, no edema Pulm: mildly labored respirations on HFNC ABD: Soft, nontender, nondistended MSK: No joint tenderness Integumentary: No rashes Neuro: Normal speech, normal affect Assessment/plan: Acute hypoxemic respiratory failure secondary to COVID-19 pneumonia Hyponatremia, suspect acute; mild HTN Diabetes mellitus type II, [id number]-[id number] significantly elevated D-dimer CTA chest without PE wean O2 as tolerated continue steroids, vitamins trend inflammatory markers seems to be improving high risk normal saline improved hyponatremia. will dc IVF given hypertension and to avoid volume overload continue home antihypertensives VTE: Eliquis Code: full Dispo: anticipate dc home with home O2, likely in ~5 days Total time spent managing patient's care: 25 min
[2021-06-26 07:04] LABS: ALT/SGPT 72 U/L (12-78); AST/SGOT 62 U/L (15-37); Albumin 2.2 g/dL (3.4-5.0); Alkaline Phosphatase 97 U/L (45-117); BUN Blood Urea Nitrogen 7 mg/dL (7-18); Bicarbonate 23 mmol/L (21-32); Bilirubin Total 0.7 mg/dL (0.2-1.0); Ferritin 801.1 ng/mL (26-388); Glucose Level 179 mg/dL (74-106); HDL Cholesterol 48 mg/dL (40-60); LDL Cholesterol, Calculated 30 (<130); Magnesium 2.4 mg/dL (1.8-2.4); Potassium 4.1 mmol/L (3.5-5.1); Protein, Total 6.5 g/dL (6.4-8.2); Sodium Level 132 mmol/L (136-145); Thyroid Stimulating Hormone 0.259 uIU/mL (0.360-3.740)
[2021-06-26] MEDS ORDERED: METFORMIN HCL 500 MG TAB PO SCH (08:00)
[2021-06-26] MEDS: VITAMIN D 1000 UNIT TAB PO SCH (08:38)
[2021-06-26] MEDS: APIXABAN 5 MG TABLET PO SCH ×2 (08:38→20:49)
[2021-06-26] MEDS: ZINC SULFATE 220 MG CAP PO SCH (08:38)
[2021-06-26] MEDS: ASCORBIC ACID 500 MG TABLET PO SCH ×4 (08:38→20:51)
[2021-06-26] MEDS: THIAMINE HCL 100 MG TABLET PO SCH (08:38)
[2021-06-26] MEDS: INSULIN -REGULAR HUMAN 50 UNIT/0.5 ML ML SQ SCH ×4 (08:39→20:50)
[2021-06-26] MEDS: METHYLPREDNISOLONE 40 MG INJ IV SCH ×2 (08:39→20:49)
[2021-06-26] MEDS: hydroCHLOROthiazide 25 MG TAB PO SCH (09:00)
[2021-06-26] MEDS ORDERED: lisinopriL 10 MG TAB PO SCH (09:00)
[2021-06-26] MEDS ORDERED: lisinopriL 20 MG TAB PO SCH (09:00)
[2021-06-26] MEDS ORDERED: hydroCHLOROthiazide 25 MG TAB PO SCH (09:00)
[2021-06-26] MEDS: FINASTERIDE 5 MG TAB PO SCH (09:28)
--- NOTE | 2021-06-26 11:48 | P.CNS ---
Date of Consult: 06/26/21 Primary Care Provider: Dr Herrera at [place] Chief Complaint: Covid Pneumonia/ hypoxia History of Present Illness: Patient is 80 years of age admitted with coronavirus pneumonia and respiratory failure very poor historian hard of hearing diabetic hypertension Allergies No Known Allergies Allergy (Unverified 06/25/21 17:57) Home Medications: Aspirin Tab [Warren Aspirin*] 325 mg 06/25/21 Atorvastatin Calcium 40 mg PO 06/25/21 Cinnamon Bark [Cinnamon] 1,000 mg PO 06/25/21 Cyanocobalamin (Vitamin B-12) [B-12] 5,000 mcg PO 06/25/21 Finasteride 5 mg PO 06/25/21 Lisinopril [Zestril] 20 mg PO 06/25/21 Metformin HCl 500 mg PO 06/25/21 Multivit-Mins/Iron/Folic/Lycop [Centrum Men's Tablet] 06/25/21 Omeprazole 20 mg PO 06/25/21 hydroCHLOROthiazide [Hydrochlorothiazide] 25 mg PO 06/25/21 lisinopriL [Lisinopril] 10 mg PO 06/25/21 - Past Medical/Surgical History Diabetic: Yes -: Diabetes -: HTN - Social History Place of Residence: Home Review of Systems is unable to be obtained Physical Examination Temp Pulse Resp BP Pulse Ox 97.7 F 96 H 20 180/86 H 92 06/26/21 08:00 06/26/21 08:00 06/26/21 08:00 06/26/21 09:28 06/26/21 08:00 General: Alert, Cooperative, Mild distress Respiratory: Diminished Cardiovascular: No edema, Normal S1 S2 Laboratory Data (last 24 hrs) 06/25/21 14:50: PT 12.8 H, INR 1.11, APTT 25.2 06/25/21 14:50: WBC 11.90 H, Hgb 14.1, Hct 42.1, Plt Count 283 D 06/25/21 14:50: Sodium 125 L, Potassium 3.3 L, BUN 9, Creatinine 0.80, Glucose 164 H, Total Bilirubin 0.9, AST 96 H, ALT 94 H, Alkaline Phosphatase 106 D, Lipase 252 - Problems (1) Pneumonia due to coronavirus disease 2019 Current Visit: Yes Status: Acute Plan: Patient is 80 years of age admitted with severe coronavirus pneumonia currently 100% FiO2 apparently he is doing better since admission labs medication reviewed patient is on steroids and Barcitinib CT scan also shows severe bilateral pneumonia very hard of hearing add Lasix white count is now normal
[2021-06-26] MEDS: FUROSEMIDE 20 MG/ 2ML VIAL IV SCH (12:06)
[2021-06-26] MEDS: HYDRALAZINE HCL 20 MG/ML VIAL IV PRN (16:51)
[2021-06-26] MEDS: BARICITINIB 2 MG TABLET PO SCH (16:51)
[2021-06-26] MEDS: ATORVASTATIN 40 MG TAB PO SCH (20:49)
[2021-06-27] MEDS: MELATONIN 5 MG TABLET PO PRN (00:41)
[2021-06-27 03:51] LABS: Absolute Lymphocytes (CBC) 1.4 K/uL (0.7-4.9); Basophils % 0.1 % (0-1.3); Hematocrit 39.8 % (39.6-49.0); Lymphocytes % 6.4 % (15.3-44.8); MPV 8.1 fL (7.6-11.3); RBC Red Blood Cell Count 4.72 M/uL (4.33-5.43)
[2021-06-27 04:30] LABS: ALT/SGPT 68 U/L (12-78); AST/SGOT 58 U/L (15-37); Albumin 2.3 g/dL (3.4-5.0); Alkaline Phosphatase 102 U/L (45-117); BUN Blood Urea Nitrogen 13 mg/dL (7-18); Bicarbonate 24 mmol/L (21-32); Bilirubin Total 0.6 mg/dL (0.2-1.0); Ferritin 894.6 ng/mL (26-388); Glucose Level 192 mg/dL (74-106); Magnesium 2.4 mg/dL (1.8-2.4); Potassium 3.6 mmol/L (3.5-5.1); Protein, Total 6.7 g/dL (6.4-8.2); Sodium Level 132 mmol/L (136-145)
[2021-06-27] MEDS: HYDRALAZINE HCL 20 MG/ML VIAL IV PRN (04:46)
[2021-06-27 05:01] LABS: Blood Morphology Comment NOT SEEN (NOT SEEN); Platelet Estimate ADEQ
--- NOTE | 2021-06-27 06:15 | P.PN ---
Date of Service: 06/27/21 Subjective: Patient reports feeling better, breathing more comfortably On maximum high flow nasal cannula, with nonrebreather mask over this Heart rate appears to be slowly increasing overnight Patient is very hard of hearing, communicated with writing/typing things out for him ROS: 10 point review of systems otherwise negative Physical exam GEN: Alert, oriented, NAD HEENT: Normal conjunctiva, sclera anicteric, hearing aides in place CV: Regular rate and rhythm, no edema Pulm: mildly labored respirations on HFNC and nonrebreather ABD: Soft, nontender, nondistended MSK: No joint tenderness Integumentary: No rashes Neuro: Normal speech, normal affect Assessment/plan: Acute hypoxemic respiratory failure secondary to COVID-19 pneumonia Hyponatremia, suspect acute; mild HTN Diabetes mellitus type II, utu-vwlbpth-gmppuofwy Hearing loss significantly elevated D-dimer CTA chest without PE wean O2 as tolerated continue steroids, vitamins, anticoagulation, baricitinib trend inflammatory markersimproving Patient feels he is improving, requiring maximum high flow nasal cannula, with nonrebreather on top of this Pulmonology following continue home antihypertensives Patient denies history of tachycardia VTE: Eliquis Code: full Dispo: anticipate dc home with home O2, in several days Guarded prognosis updated at bedside on 06/27 Reviewed CODE STATUS with patient, full code Total time spent managing patient's care: 35 min
[2021-06-27] MEDS ORDERED: POTASSIUM 25 MEQ EFFERV TAB PO ONE (07:34)
[2021-06-27] MEDS: ZINC SULFATE 220 MG CAP PO SCH (08:31)
[2021-06-27] MEDS: METHYLPREDNISOLONE 40 MG INJ IV SCH ×2 (08:31→20:51)
[2021-06-27] MEDS: lisinopriL 20 MG TAB PO SCH (08:32)
[2021-06-27] MEDS: VITAMIN D 1000 UNIT TAB PO SCH (08:32)
[2021-06-27] MEDS: FINASTERIDE 5 MG TAB PO SCH (08:32)
[2021-06-27] MEDS: THIAMINE HCL 100 MG TABLET PO SCH (08:32)
[2021-06-27] MEDS: ASCORBIC ACID 500 MG TABLET PO SCH ×4 (08:32→20:59)
[2021-06-27] MEDS: FUROSEMIDE 20 MG/ 2ML VIAL IV SCH (08:33)
[2021-06-27] MEDS: INSULIN -REGULAR HUMAN 50 UNIT/0.5 ML ML SQ SCH ×4 (08:33→20:52)
[2021-06-27] MEDS: hydroCHLOROthiazide 25 MG TAB PO SCH (08:34)
[2021-06-27] MEDS: APIXABAN 5 MG TABLET PO SCH ×2 (08:36→20:52)
[2021-06-27] MEDS ORDERED: METOPROLOL TARTRATE 5 MG/5 ML INJ IV STA (15:29)
[2021-06-27] MEDS: BARICITINIB 2 MG TABLET PO SCH (16:08)
[2021-06-27] MEDS ORDERED: Levofloxacin 750mg IV 750 MG/150 ML BAG IV SCH (17:00)
[2021-06-27] MEDS: ATORVASTATIN 40 MG TAB PO SCH (20:52)
[2021-06-28] MEDS: HYDRALAZINE HCL 20 MG/ML VIAL IV PRN (02:46)
[2021-06-28] MEDS: MELATONIN 5 MG TABLET PO PRN ×2 (02:47→20:39)
[2021-06-28 04:18] LABS: Absolute Lymphocytes (CBC) 1.4 K/uL (0.7-4.9); Basophils % 0.1 % (0-1.3); Hematocrit 41.5 % (39.6-49.0); Lymphocytes % 6.9 % (15.3-44.8); MPV 8.1 fL (7.6-11.3); RBC Red Blood Cell Count 4.92 M/uL (4.33-5.43)
[2021-06-28 04:39] LABS: ALT/SGPT 69 U/L (12-78); AST/SGOT 71 U/L (15-37); Albumin 2.4 g/dL (3.4-5.0); Alkaline Phosphatase 118 U/L (45-117); BUN Blood Urea Nitrogen 21 mg/dL (7-18); Bicarbonate 23 mmol/L (21-32); Bilirubin Total 0.8 mg/dL (0.2-1.0); Ferritin 784.2 ng/mL (26-388); Glucose Level 165 mg/dL (74-106); Magnesium 2.4 mg/dL (1.8-2.4); Potassium 3.9 mmol/L (3.5-5.1); Protein, Total 7.1 g/dL (6.4-8.2); Sodium Level 132 mmol/L (136-145)
--- NOTE | 2021-06-28 07:10 | RAD REPORT ---
EXAM DESCRIPTION: RAD - Chest Single View - 06/28/2021 5:21 am CLINICAL HISTORY: Worsening hypoxia, Covid COMPARISON: Chest Single View dated 06/25/2021; Chest Single View dated 06/22/2021 FINDINGS: Lines: None. Lungs: Similar basilar airspace disease compared with 06/25/2021. Pleural: No significant pleural effusions or pneumothorax. Cardiac: The heart size is within normal limits. Bones: No acute fractures. Other: IMPRESSION: Similar basilar airspace disease concerning for multifocal pneumonia, including Covid-19 .
[2021-06-28] MEDS: THIAMINE HCL 100 MG TABLET PO SCH (08:36)
[2021-06-28] MEDS: hydroCHLOROthiazide 25 MG TAB PO SCH (08:36)
[2021-06-28] MEDS: APIXABAN 5 MG TABLET PO SCH ×2 (08:36→20:39)
[2021-06-28] MEDS: ZINC SULFATE 220 MG CAP PO SCH (08:37)
[2021-06-28] MEDS: FUROSEMIDE 20 MG/ 2ML VIAL IV SCH (08:37)
[2021-06-28] MEDS: METHYLPREDNISOLONE 40 MG INJ IV SCH ×2 (08:37→20:39)
[2021-06-28] MEDS: ASCORBIC ACID 500 MG TABLET PO SCH (08:37)
[2021-06-28] MEDS: FINASTERIDE 5 MG TAB PO SCH (08:37)
[2021-06-28] MEDS: lisinopriL 20 MG TAB PO SCH (08:37)
[2021-06-28] MEDS: VITAMIN D 1000 UNIT TAB PO SCH (08:37)
[2021-06-28] MEDS: INSULIN -REGULAR HUMAN 50 UNIT/0.5 ML ML SQ SCH ×4 (08:38→20:39)
[2021-06-28] MEDS: METOPROLOL TAR 25 MG TAB PO SCH ×2 (11:01→17:27)
--- NOTE | 2021-06-28 12:04 | P.PN ---
Subjective Date of Service: 06/28/21 Primary Care Provider: Dr Herrera at [place] Chief Complaint: Covid Pneumonia/ hypoxia NC still hypoxic Review of Systems Respiratory: Shortness of Breath Physical Examination - Vital Signs Temperature: 98.4 F Blood Pressure: 160/79 Pulse: 129 Respirations: 22 Pulse Ox (%): 95 - Physical Exam General: Alert, In no apparent distress, Cooperative - Studies Microbiology Data (last 24 hrs): 06/25/21 15:10 Throat Culture & Sensitivity - Final NORMAL UPPER RESPIRATORY ALLIE GROWN. Assessment & Plan - Problems (Diagnosis) (1) Pneumonia due to coronavirus disease 2019 Current Visit: Yes Status: Acute Plan: Resp failure NC / Labs reviewed/ WBC elevated cultures neg DC levaquin/ Add amlodipine, HTN
[2021-06-28] MEDS: AMLODIPINE 5 MG TAB PO SCH (13:36)
--- NOTE | 2021-06-28 16:35 | P.PN ---
Subjective Date of Service: 06/28/21 Primary Care Provider: Dr Herrera at [place] Chief Complaint: Covid Pneumonia/ hypoxia Patient requiring high-flow oxygen. He is also using NRB. He looks anxious. Physical Examination - Vital Signs Temperature: 98.4 F Blood Pressure: 160/79 Pulse: 129 Respirations: 22 Pulse Ox (%): 95 - Physical Exam General: Alert, Other (anxious) HEENT: Other (HFNC) Neck: JVD not distended Respiratory: Other (Mildly labored breathing) Cardiovascular: No edema, Regular rate/rhythm, Normal S1 S2 Gastrointestinal: Soft and benign, Non-distended Musculoskeletal: No swelling Integumentary: No rashes, No cyanosis Neurological: Other (No focal motor deficit) Assessment And Plan - Plan Assessment/plan: Acute hypoxemic respiratory failure secondary to COVID-19 pneumonia Hyponatremia, suspect acute; mild HTN Diabetes mellitus type II, rrd-abgykld-dommqauig Hearing loss Sinus tachycardia Hypertension CTA chest without PE Patient requiring high-flow oxygen. continue steroids, vitamins, anticoagulation, baricitinib trend inflammatory markers. Pulmonology following Tachycardia likely reactive. Patient is also hypertensive. Continue on amlodipine. Added metoprolol to control his heart rate too. Xanax p.r.n. for anxiety. Wean oxygen as tolerated. VTE: Eliquis Code: full Guarded prognosis
[2021-06-28] MEDS: BARICITINIB 2 MG TABLET PO SCH (17:27)
--- NOTE | 2021-06-28 18:17 | EKG ---
Test Date: 2021-06-25 Test Time: 14:50:58 Inspector Machine Cut Glass: KEARA MEASUREMENT RESULTS: Intervals: Rate: 116 IL: 148 QRSD: 128 QT: 356 QTc: 494 [place]: P: 55 IL: 148 QRS: 37 T: 49 INTERPRETIVE STATEMENTS: Sinus tachycardia Possible Left atrial enlargement Right bundle branch block Cannot rule out Inferior infarct, age undetermined Abnormal ECG Compared to ECG 06/22/2021 15:39:02 Myocardial infarct finding now present Electronically Signed On 06-28-21 18:06:53 CDT by Villa Akbar
[2021-06-28] MEDS: ATORVASTATIN 40 MG TAB PO SCH (20:39)
[2021-06-29 03:55] LABS: Absolute Lymphocytes (CBC) 1.1 K/uL (0.7-4.9); Basophils % 0.3 % (0-1.3); Hematocrit 40.9 % (39.6-49.0); Lymphocytes % 6.6 % (15.3-44.8); MPV 7.6 fL (7.6-11.3); RBC Red Blood Cell Count 4.87 M/uL (4.33-5.43)
[2021-06-29 04:13] LABS: ALT/SGPT 87 U/L (12-78); AST/SGOT 98 U/L (15-37); Albumin 2.2 g/dL (3.4-5.0); Alkaline Phosphatase 131 U/L (45-117); BUN Blood Urea Nitrogen 26 mg/dL (7-18); Bicarbonate 27 mmol/L (21-32); Bilirubin Total 0.9 mg/dL (0.2-1.0); Glucose Level 163 mg/dL (74-106); Magnesium 2.4 mg/dL (1.8-2.4); Potassium 4.2 mmol/L (3.5-5.1); Protein, Total 6.7 g/dL (6.4-8.2); Sodium Level 129 mmol/L (136-145)
[2021-06-29] MEDS: AMLODIPINE 5 MG TAB PO SCH (04:42)
[2021-06-29] MEDS: METOPROLOL TAR 25 MG TAB PO SCH ×2 (04:43→16:06)
[2021-06-29] MEDS: INSULIN -REGULAR HUMAN 50 UNIT/0.5 ML ML SQ SCH ×4 (07:30→20:33)
[2021-06-29] MEDS: VITAMIN D 1000 UNIT TAB PO SCH (09:34)
[2021-06-29] MEDS: APIXABAN 5 MG TABLET PO SCH ×2 (09:35→20:16)
[2021-06-29] MEDS: hydroCHLOROthiazide 25 MG TAB PO SCH (09:35)
[2021-06-29] MEDS: FUROSEMIDE 20 MG/ 2ML VIAL IV SCH (09:35)
[2021-06-29] MEDS: lisinopriL 20 MG TAB PO SCH (09:35)
[2021-06-29] MEDS: THIAMINE HCL 100 MG TABLET PO SCH (09:35)
[2021-06-29] MEDS: METHYLPREDNISOLONE 40 MG INJ IV SCH ×2 (09:36→20:16)
[2021-06-29] MEDS: ZINC SULFATE 220 MG CAP PO SCH (09:36)
--- NOTE | 2021-06-29 12:07 | P.PN ---
Subjective Date of Service: 06/29/21 Primary Care Provider: Dr Herrera at [place] Chief Complaint: Covid Pneumonia/ hypoxia Patient is very hypoxic transferred to the ICU apparently he fell currently comfortable on the BiPAP Review of Systems is unable to be obtained Physical Examination - Vital Signs Temperature: 96.8 F Blood Pressure: 163/75 Pulse: 109 Respirations: 32 Pulse Ox (%): 91 - Physical Exam General: Alert, Cooperative Assessment & Plan - Problems (Diagnosis) (1) Pneumonia due to coronavirus disease 2019 Current Visit: Yes Status: Acute Plan: Respiratory failure from coronavirus still very hypoxic continues to remain hypoxic on 100% FiO2 and BiPAP treatment patient is eating and drinking blood pressure still elevated
[2021-06-29] MEDS: FINASTERIDE 5 MG TAB PO SCH (13:23)
[2021-06-29] MEDS: BARICITINIB 2 MG TABLET PO SCH (16:06)
--- NOTE | 2021-06-29 16:34 | P.PN ---
Subjective Date of Service: 06/29/21 Primary Care Provider: Dr Herrera at [place] Chief Complaint: Covid Pneumonia/ hypoxia Patient now on BiPAP. No issues overnight. Physical Examination - Vital Signs Temperature: 96.8 F Blood Pressure: 157/65 Pulse: 105 Respirations: 31 Pulse Ox (%): 93 - Physical Exam General: Mild distress HEENT: Other (BiPAP) Neck: JVD not distended Gastrointestinal: Soft and benign, Non-distended Musculoskeletal: No swelling Integumentary: No rashes Neurological: Other (No focal motor deficit) Assessment And Plan - Plan Assessment/plan: Acute hypoxemic respiratory failure secondary to COVID-19 pneumonia Hyponatremia, suspect acute; mild HTN Diabetes mellitus type II, fdz-yhffbry-faivaztjg Hearing loss Sinus tachycardia Hypertension CTA chest without PE Patient now on BiPAP. continue steroids, vitamins, anticoagulation, baricitinib trend inflammatory markers. Pulmonology following Tachycardia likely reactive. Improved. Patient is also hypertensive. Continue on amlodipine. Contain metoprolol for BP and heart rate. Xanax p.r.n. for anxiety. Wean oxygen as tolerated. VTE: Eliquis Code: full Guarded prognosis
[2021-06-29] MEDS: ATORVASTATIN 40 MG TAB PO SCH (20:16)
[2021-06-30] MEDS: METOPROLOL TAR 25 MG TAB PO SCH ×2 (05:11→16:51)
[2021-06-30 05:14] LABS: Basophils % 0.1 % (0-1.3); Hematocrit 42.4 % (39.6-49.0); MPV 7.9 fL (7.6-11.3); RBC Red Blood Cell Count 5.01 M/uL (4.33-5.43)
[2021-06-30 05:52] LABS: ALT/SGPT 92 U/L (12-78); AST/SGOT 93 U/L (15-37); Albumin 2.1 g/dL (3.4-5.0); Alkaline Phosphatase 140 U/L (45-117); BUN Blood Urea Nitrogen 27 mg/dL (7-18); Bicarbonate 28 mmol/L (21-32); Bilirubin Total 1.1 mg/dL (0.2-1.0); Glucose Level 168 mg/dL (74-106); Magnesium 2.7 mg/dL (1.8-2.4); Potassium 4.3 mmol/L (3.5-5.1); Protein, Total 6.6 g/dL (6.4-8.2); Sodium Level 133 mmol/L (136-145)
[2021-06-30 07:53] LABS: Blood Morphology Comment NOT SEEN (NOT SEEN); Platelet Estimate ADEQ
[2021-06-30] MEDS: VITAMIN D 1000 UNIT TAB PO SCH (09:02)
[2021-06-30] MEDS: FINASTERIDE 5 MG TAB PO SCH (09:02)
[2021-06-30] MEDS: lisinopriL 20 MG TAB PO SCH (09:03)
[2021-06-30] MEDS: FUROSEMIDE 20 MG/ 2ML VIAL IV SCH (09:03)
[2021-06-30] MEDS: hydroCHLOROthiazide 25 MG TAB PO SCH (09:03)
[2021-06-30] MEDS: ZINC SULFATE 220 MG CAP PO SCH (09:03)
[2021-06-30] MEDS: THIAMINE HCL 100 MG TABLET PO SCH (09:04)
[2021-06-30] MEDS: APIXABAN 5 MG TABLET PO SCH ×2 (09:04→20:04)
[2021-06-30] MEDS: AMLODIPINE 10 MG TAB PO SCH (09:04)
[2021-06-30] MEDS: INSULIN -REGULAR HUMAN 50 UNIT/0.5 ML ML SQ SCH ×4 (09:05→20:25)
[2021-06-30] MEDS: METHYLPREDNISOLONE 40 MG INJ IV SCH ×2 (09:05→20:04)
--- NOTE | 2021-06-30 12:23 | P.PN ---
Subjective Date of Service: 06/30/21 Primary Care Provider: Dr Herrera at [place] Chief Complaint: Covid Pneumonia/ hypoxia No change patient continues to be very hypoxic Review of Systems General: Weakness Respiratory: Shortness of Breath Physical Examination - Vital Signs Temperature: 99.0 F Blood Pressure: 144/76 Pulse: 94 Respirations: 28 Pulse Ox (%): 94 - Physical Exam General: Alert, Oriented x3, Cooperative, Mild distress Assessment & Plan - Problems (Diagnosis) (1) Pneumonia due to coronavirus disease 2018 Current Visit: Yes Status: Acute Plan: Respiratory failure patient is hypoxic patient is on maximum therapy on 100% FiO2 blood pressure controlled
--- NOTE | 2021-06-30 14:39 | P.PN ---
Subjective Date of Service: 06/30/21 Primary Care Provider: Dr Herrera at [place] Chief Complaint: Covid Pneumonia/ hypoxia Patient on high-flow oxygen today. No issues overnight. Leukocytosis trended up. Physical Examination - Vital Signs Temperature: 99.0 F Blood Pressure: 144/76 Pulse: 94 Respirations: 28 Pulse Ox (%): 94 - Physical Exam General: Alert, Mild distress HEENT: Other (HFNC) Respiratory: Other (Mildly labored breathing) Cardiovascular: No edema, Regular rate/rhythm, Normal S1 S2 Gastrointestinal: Soft and benign, Non-distended Musculoskeletal: No swelling Integumentary: No rashes Neurological: Normal strength at 5/5 x4 extr Assessment And Plan - Plan Assessment/plan: Acute hypoxemic respiratory failure secondary to COVID-19 pneumonia Hyponatremia, suspect acute; mild HTN Diabetes mellitus type II, bwx-qzhbjhx-oldklpmmo Hearing loss Sinus tachycardia Hypertension Patient on 100% FiO2, HFNC. continue steroids, vitamins, anticoagulation, baricitinib trend inflammatory markers. Leukocytosis is trending up. Started Levaquin for possible secondary bacterial infection. Pulmonology following Tachycardia likely reactive. Improved. Patient is also hypertensive. Continue on amlodipine. Continue metoprolol for BP and heart rate. Xanax p.r.n. for anxiety. Wean oxygen as tolerated. VTE: Eliquis Code: full Guarded prognosis
[2021-06-30] MEDS: Levofloxacin 750mg IV 750 MG/150 ML BAG IV SCH (16:04)
[2021-06-30] MEDS: BARICITINIB 2 MG TABLET PO SCH (16:04)
[2021-06-30] MEDS: ATORVASTATIN 40 MG TAB PO SCH (20:04)
[2021-07-01 05:44] LABS: Absolute Lymphocytes (CBC) 1.3 K/uL (0.7-4.9); Basophils % 0.2 % (0-1.3); Hematocrit 44.4 % (39.6-49.0); Lymphocytes % 4.5 % (15.3-44.8); MPV 8.1 fL (7.6-11.3); RBC Red Blood Cell Count 5.28 M/uL (4.33-5.43)
[2021-07-01] MEDS: METOPROLOL TAR 25 MG TAB PO SCH ×2 (05:56→18:00)
[2021-07-01 05:59] LABS: ALT/SGPT 131 U/L (12-78); AST/SGOT 93 U/L (15-37); Albumin 2.1 g/dL (3.4-5.0); Alkaline Phosphatase 154 U/L (45-117); BUN Blood Urea Nitrogen 35 mg/dL (7-18); Bicarbonate 27 mmol/L (21-32); Glucose Level 155 mg/dL (74-106); Magnesium 2.6 mg/dL (1.8-2.4); Potassium 4.1 mmol/L (3.5-5.1); Sodium Level 131 mmol/L (136-145)
[2021-07-01] MEDS: METHYLPREDNISOLONE 40 MG INJ IV SCH ×2 (08:04→19:59)
[2021-07-01] MEDS: FUROSEMIDE 20 MG/ 2ML VIAL IV SCH (08:04)
[2021-07-01] MEDS: INSULIN -REGULAR HUMAN 50 UNIT/0.5 ML ML SQ SCH ×4 (08:04→20:02)
[2021-07-01] MEDS: ZINC SULFATE 220 MG CAP PO SCH (08:05)
[2021-07-01] MEDS: hydroCHLOROthiazide 25 MG TAB PO SCH (08:05)
[2021-07-01] MEDS: THIAMINE HCL 100 MG TABLET PO SCH (08:05)
[2021-07-01] MEDS: lisinopriL 20 MG TAB PO SCH (08:05)
[2021-07-01] MEDS: VITAMIN D 1000 UNIT TAB PO SCH (08:05)
[2021-07-01] MEDS: FINASTERIDE 5 MG TAB PO SCH (08:06)
[2021-07-01] MEDS: AMLODIPINE 10 MG TAB PO SCH (08:06)
[2021-07-01] MEDS: APIXABAN 5 MG TABLET PO SCH ×2 (08:06→19:59)
--- NOTE | 2021-07-01 09:07 | RAD REPORT ---
EXAM DESCRIPTION: RAD - Chest Single View - 07/01/2021 6:33 am CLINICAL HISTORY: Respiratory failure Chest pain. COMPARISON: Chest Single View dated 06/28/2021; Chest Single View dated 06/25/2021; Chest Single View dated 06/22/2021 FINDINGS: Portable technique limits examination quality. Moderate bilateral pulmonary opacities are present, appearing fractionally worse relative to 06/28/20 study. The heart is upper limit normal in size. No displaced fractures. IMPRESSION: Fractional worsening in lung aeration seen since comparative examination.
--- NOTE | 2021-07-01 10:17 | RAD REPORT ---
EXAM DESCRIPTION: RAD - Chest Single View - 07/01/2021 10:05 am CLINICAL HISTORY: Decreased Oxygen Saturations Chest pain. COMPARISON: Chest Single View dated 07/01/2021; Chest Single View dated 06/28/2021; Chest Single View dated 06/25/2021; Chest Single View dated 06/22/2021 FINDINGS: Portable technique limits examination quality. Bilateral pulmonary opacities greater in the lung bases are again noted, appearing mildly improved si nce earlier study same date. The heart is normal in size. No displaced fractures. IMPRESSION: Slight improvement lung aeration is noted since earlier study same date.
--- NOTE | 2021-07-01 12:35 | P.PN ---
Subjective Date of Service: 07/01/21 Primary Care Provider: Dr Herrera at [place] Chief Complaint: Covid Pneumonia/ hypoxia Patient reported to have desaturated to the 70s on high-flow oxygen this morning. Patient placed on BiPAP. Leukocytosis continue to trend up. Physical Examination - Vital Signs Temperature: 98.1 F Blood Pressure: 127/59 Pulse: 110 Respirations: 43 Pulse Ox (%): 90 - Physical Exam General: Alert, In no apparent distress Neck: JVD not distended Respiratory: Other (Mildly labored breathing) Cardiovascular: No edema, Normal S1 S2, Other (Tachycardia) Gastrointestinal: Soft and benign, Non-distended Musculoskeletal: No contractures Integumentary: No rashes, No erythema Neurological: Normal strength at 5/5 x4 extr - Studies Microbiology Data (last 24 hrs): 06/25/21 14:50 Blood - Blood Aerobic Blood Culture - Final No growth in 5 days. 06/25/21 14:50 Blood - Blood Anaerobic Blood Culture - Final No growth in 5 days. 06/25/21 15:05 Blood - Blood Aerobic Blood Culture - Final No growth in 5 days. 06/25/21 15:05 Blood - Blood Anaerobic Blood Culture - Final No growth in 5 days. Assessment And Plan - Plan Assessment/plan: Acute hypoxemic respiratory failure secondary to COVID-19 pneumonia Hyponatremia, suspect acute; mild HTN Diabetes mellitus type II, ftb-vvrjtsv-qhwnqiqhx Hearing loss Sinus tachycardia Hypertension Patient on BiPAP this morning. continue steroids, vitamins, anticoagulation, baricitinib trend inflammatory markers. Leukocytosis is trending up. Continue Levaquin. Repeat blood culture. Pulmonology following Tachycardia likely reactive. Improved. Patient is also hypertensive. Continue on amlodipine. Continue metoprolol for BP for heart rate. Xanax p.r.n. for anxiety. Weaned off BiPAP as tolerated. Wean oxygen as tolerated. VTE: Eliquis Code: full Guarded prognosis
[2021-07-01] MEDS: Levofloxacin 750mg IV 750 MG/150 ML BAG IV SCH (14:25)
[2021-07-01 14:57] LABS: Magnesium 2.7 mg/dL (1.8-2.4); Phosphorus 4.1 mg/dL (2.5-4.9)
[2021-07-01] MEDS: BARICITINIB 2 MG TABLET PO SCH (16:51)
[2021-07-01] MEDS: ATORVASTATIN 40 MG TAB PO SCH (19:59)
[2021-07-02] MEDS: METOPROLOL TAR 25 MG TAB PO SCH ×2 (05:28→17:33)
[2021-07-02] MEDS: INSULIN -REGULAR HUMAN 50 UNIT/0.5 ML ML SQ SCH ×4 (05:29→20:36)
[2021-07-02 05:43] LABS: Absolute Lymphocytes (CBC) 0.7 K/uL (0.7-4.9); Basophils % 0.1 % (0-1.3); Hematocrit 45.5 % (39.6-49.0); MPV 8.4 fL (7.6-11.3); RBC Red Blood Cell Count 5.32 M/uL (4.33-5.43)
[2021-07-02 05:52] LABS: BUN Blood Urea Nitrogen 36 mg/dL (7-18); Bicarbonate 29 mmol/L (21-32); Glucose Level 173 mg/dL (74-106); Potassium 4.9 mmol/L (3.5-5.1); Sodium Level 135 mmol/L (136-145)
[2021-07-02] MEDS: METHYLPREDNISOLONE 40 MG INJ IV SCH ×2 (08:44→20:35)
[2021-07-02] MEDS: FUROSEMIDE 20 MG/ 2ML VIAL IV SCH (08:45)
[2021-07-02] MEDS: THIAMINE HCL 100 MG TABLET PO SCH (08:46)
[2021-07-02] MEDS: lisinopriL 20 MG TAB PO SCH (08:46)
[2021-07-02] MEDS: FINASTERIDE 5 MG TAB PO SCH (08:47)
[2021-07-02] MEDS: AMLODIPINE 10 MG TAB PO SCH (08:47)
[2021-07-02] MEDS: APIXABAN 5 MG TABLET PO SCH ×2 (08:47→20:35)
[2021-07-02] MEDS: hydroCHLOROthiazide 25 MG TAB PO SCH (08:47)
[2021-07-02] MEDS: VITAMIN D 1000 UNIT TAB PO SCH (08:48)
[2021-07-02] MEDS: ZINC SULFATE 220 MG CAP PO SCH (08:50)
--- NOTE | 2021-07-02 12:22 | P.PN ---
Subjective Date of Service: 07/02/21 Primary Care Provider: Dr Herrera at [place] Chief Complaint: Covid Pneumonia/ hypoxia Patient alternating between high-flow O2 and BiPAP Leukocytosis trended down today. Physical Examination - Vital Signs Temperature: 97.0 F Blood Pressure: 132/72 Pulse: 93 Respirations: 26 Pulse Ox (%): 95 - Physical Exam General: Mild distress, Other (Awake) HEENT: Other (BiPAP) Respiratory: Other (Mild labored breathing) Cardiovascular: No edema, Regular rate/rhythm, Normal S1 S2 Gastrointestinal: Soft and benign, Non-distended Musculoskeletal: No swelling Integumentary: No rashes Neurological: Other (No focal motor deficit.) Assessment And Plan - Plan Assessment/plan: Acute hypoxemic respiratory failure secondary to COVID-19 pneumonia Hyponatremia, suspect acute; mild HTN Diabetes mellitus type II, tfb-awcjmqo-qgynmdwdu Hearing loss Sinus tachycardia Hypertension continue steroids, vitamins, anticoagulation, baricitinib CRP has trended down Leukocytosis trending down today. Continue Levaquin. Repeat blood culture is pending. Pulmonology following Tachycardia likely reactive. Improved. Patient is also hypertensive. Continue on amlodipine. Continue metoprolol for BP for heart rate. Xanax p.r.n. for anxiety. Weaned off BiPAP as tolerated. Wean oxygen as tolerated. Feeding as tolerated. VTE: Eliquis Code: full Guarded prognosis
[2021-07-02] MEDS: BARICITINIB 2 MG TABLET PO SCH (15:05)
[2021-07-02] MEDS: Levofloxacin 750mg IV 750 MG/150 ML BAG IV SCH (15:06)
[2021-07-02] MEDS: ATORVASTATIN 40 MG TAB PO SCH (20:35)
[2021-07-03 05:01] LABS: Absolute Lymphocytes (CBC) 0.5 K/uL (0.7-4.9); Hematocrit 44.4 % (39.6-49.0); Lymphocytes % 2.4 % (15.3-44.8); MPV 8.3 fL (7.6-11.3); RBC Red Blood Cell Count 5.17 M/uL (4.33-5.43)
[2021-07-03 05:10] LABS: BUN Blood Urea Nitrogen 39 mg/dL (7-18); Bicarbonate 27 mmol/L (21-32); Glucose Level 192 mg/dL (74-106); Potassium 4.7 mmol/L (3.5-5.1); Sodium Level 133 mmol/L (136-145)
[2021-07-03] MEDS: INSULIN -REGULAR HUMAN 50 UNIT/0.5 ML ML SQ SCH ×4 (06:06→20:38)
[2021-07-03] MEDS: METOPROLOL TAR 25 MG TAB PO SCH ×2 (06:06→17:06)
[2021-07-03] MEDS: THIAMINE HCL 100 MG TABLET PO SCH (07:46)
[2021-07-03] MEDS: ZINC SULFATE 220 MG CAP PO SCH (07:46)
[2021-07-03] MEDS: VITAMIN D 1000 UNIT TAB PO SCH (07:47)
[2021-07-03] MEDS: APIXABAN 5 MG TABLET PO SCH ×2 (07:47→20:38)
[2021-07-03] MEDS: FINASTERIDE 5 MG TAB PO SCH (07:47)
[2021-07-03] MEDS: hydroCHLOROthiazide 25 MG TAB PO SCH (07:48)
[2021-07-03] MEDS: AMLODIPINE 10 MG TAB PO SCH (07:48)
[2021-07-03] MEDS: FUROSEMIDE 20 MG/ 2ML VIAL IV SCH (07:49)
[2021-07-03] MEDS: lisinopriL 20 MG TAB PO SCH (07:49)
[2021-07-03] MEDS: METHYLPREDNISOLONE 40 MG INJ IV SCH ×2 (07:50→20:39)
--- NOTE | 2021-07-03 11:46 | P.PN ---
Subjective Date of Service: 07/03/21 Primary Care Provider: Dr Herrera at [place] Chief Complaint: Covid Pneumonia/ hypoxia Patient is tolerating high-flow oxygen today. He is hard of hearing. Physical Examination - Vital Signs Temperature: 97.5 F Blood Pressure: 143/59 Pulse: 106 Respirations: 28 Pulse Ox (%): 95 - Physical Exam General: Alert, Mild distress HEENT: Other (HFNC) Neck: JVD not distended Respiratory: Other (Mildly labored breathing) Cardiovascular: Normal S1 S2, Other (Tachycardia) Gastrointestinal: Soft and benign, Non-distended, No tenderness Musculoskeletal: No swelling Neurological: Normal strength at 5/5 x4 extr Assessment And Plan - Plan Assessment/plan: Acute hypoxemic respiratory failure secondary to COVID-19 pneumonia Hyponatremia, suspect acute; mild HTN Diabetes mellitus type II, bza-rvcdlfw-oawzacabz Hearing loss Sinus tachycardia Hypertension continue steroids, vitamins, anticoagulation, baricitinib Continue Levaquin. Repeat blood culture is pending. Pulmonology following Tachycardia likely reactive. Improved. Hypertensive Continue on amlodipine. Continue metoprolol for BP for heart rate. Xanax p.r.n. for anxiety. Wean oxygen as tolerated. Feeding as tolerated. VTE: Eliquis Code: full Guarded prognosis
[2021-07-03] MEDS: Levofloxacin 750mg IV 750 MG/150 ML BAG IV SCH (14:55)
[2021-07-03] MEDS: BARICITINIB 2 MG TABLET PO SCH (15:05)
[2021-07-03] MEDS: ATORVASTATIN 40 MG TAB PO SCH (20:38)
[2021-07-03] MEDS: PANTOPRAZOLE 40MG TABLET PO SCH (23:07)
[2021-07-04 05:15] LABS: Absolute Lymphocytes (CBC) 0.4 K/uL (0.7-4.9); Basophils % 0.2 % (0-1.3); Hematocrit 44.5 % (39.6-49.0); Lymphocytes % 2.2 % (15.3-44.8); MPV 8.4 fL (7.6-11.3)
[2021-07-04 05:31] LABS: BUN Blood Urea Nitrogen 42 mg/dL (7-18); Bicarbonate 28 mmol/L (21-32); Glucose Level 181 mg/dL (74-106); Potassium 5.1 mmol/L (3.5-5.1); Sodium Level 131 mmol/L (136-145)
[2021-07-04] MEDS: METOPROLOL TAR 25 MG TAB PO SCH ×2 (05:38→18:23)
[2021-07-04 07:53] LABS: Platelet Estimate ADEQ; White Blood Cell Scan OK (OK)
[2021-07-04 07:54] LABS: Blood Morphology Comment NOTED (NOT SEEN); Hypochromasia 1+; Platelets, Giant PRESENT; Poikilocytosis SLIGHT
[2021-07-04] MEDS: VITAMIN D 1000 UNIT TAB PO SCH (08:00)
[2021-07-04] MEDS: FUROSEMIDE 20 MG/ 2ML VIAL IV SCH (08:01)
[2021-07-04] MEDS: lisinopriL 20 MG TAB PO SCH (08:01)
[2021-07-04] MEDS: AMLODIPINE 10 MG TAB PO SCH (08:02)
[2021-07-04] MEDS: hydroCHLOROthiazide 25 MG TAB PO SCH (08:02)
[2021-07-04] MEDS: THIAMINE HCL 100 MG TABLET PO SCH (08:02)
[2021-07-04] MEDS: METHYLPREDNISOLONE 40 MG INJ IV SCH ×2 (08:02→20:21)
[2021-07-04] MEDS: FINASTERIDE 5 MG TAB PO SCH (08:02)
[2021-07-04] MEDS: INSULIN -REGULAR HUMAN 50 UNIT/0.5 ML ML SQ SCH ×4 (08:03→20:22)
[2021-07-04] MEDS: ZINC SULFATE 220 MG CAP PO SCH (08:03)
[2021-07-04] MEDS: APIXABAN 5 MG TABLET PO SCH ×2 (08:03→20:20)
[2021-07-04] MEDS: PANTOPRAZOLE 40MG TABLET PO SCH ×2 (08:03→16:24)
--- NOTE | 2021-07-04 12:12 | P.PN ---
Subjective Date of Service: 07/04/21 Primary Care Provider: Dr Herrera at [place] Chief Complaint: Covid Pneumonia/ hypoxia No change printed patient no change patient continues to remain hypoxic Review of Systems Respiratory: Shortness of Breath Physical Examination - Vital Signs Temperature: 97.5 F Blood Pressure: 120/74 Pulse: 102 Respirations: 24 Pulse Ox (%): 100 - Physical Exam General: Alert, Oriented x3, Cooperative Assessment & Plan - Problems (Diagnosis) (1) Pneumonia due to coronavirus disease 2019 Current Visit: Yes Status: Acute Plan: Patient's condition remains stable he still requiring high concentrations of oxygen white count is declining white count is declining
--- NOTE | 2021-07-04 14:28 | P.PN ---
Subjective Date of Service: 07/04/21 Primary Care Provider: Dr Herrera at [place] Chief Complaint: Covid Pneumonia/ hypoxia Patient is stable on high-flow oxygen. He is hard of hearing. Physical Examination - Vital Signs Temperature: 97.5 F Blood Pressure: 127/60 Pulse: 112 Respirations: 33 Pulse Ox (%): 89 - Physical Exam General: Alert, In no apparent distress Neck: JVD not distended Respiratory: Other (Nonlabored breathing) Cardiovascular: Normal S1 S2, Other (Tachycardia) Gastrointestinal: Soft and benign, Non-distended Musculoskeletal: No swelling Integumentary: No rashes Neurological: Normal strength at 5/5 x4 extr Assessment And Plan - Plan Assessment/plan: Acute hypoxemic respiratory failure secondary to COVID-19 pneumonia Hyponatremia, suspect acute; mild HTN Diabetes mellitus type II, efw-wkrzvcy-trqaorgfr Hearing loss Sinus tachycardia Hypertension continue steroids, vitamins, anticoagulation, baricitinib Continue Levaquin. Leukocytosis is trending down. Repeat blood culture: No growth to date. Pulmonology following Tachycardia Improved. Patient is also hypertensive Continue on amlodipine and metoprolol. Xanax p.r.n. for anxiety. Wean oxygen as tolerated. Feeding as tolerated. Hopefully patient's oxygen requirement is trending down. VTE: Eliquis Code: full Guarded prognosis
[2021-07-04 14:40] LABS: Arterial Blood Carboxyhemoglob 0.8 % (0-1.5); Blood Gas Oxyhemoglobin 88.2 % (94-97); Blood O2 Saturation 89.8 % (92-98.5)
[2021-07-04] MEDS: Levofloxacin 750mg IV 750 MG/150 ML BAG IV SCH (15:10)
[2021-07-04] MEDS: BARICITINIB 2 MG TABLET PO SCH (16:25)
[2021-07-04] MEDS: ATORVASTATIN 40 MG TAB PO SCH (20:21)
[2021-07-05 04:58] LABS: Absolute Lymphocytes (CBC) 0.4 K/uL (0.7-4.9); Basophils % 0.1 % (0-1.3); Hematocrit 43.4 % (39.6-49.0); Lymphocytes % 2.3 % (15.3-44.8); MPV 8.3 fL (7.6-11.3); RBC Red Blood Cell Count 5.07 M/uL (4.33-5.43)
[2021-07-05] MEDS: METOPROLOL TAR 25 MG TAB PO SCH ×2 (05:07→17:25)
[2021-07-05 05:21] LABS: Albumin 2.3 g/dL (3.4-5.0); C-Reactive Protein 4.02 mg/L (<3.00); Ferritin 1915.1 ng/mL (26-388); Magnesium 2.9 mg/dL (1.8-2.4); Protein, Total 6.7 g/dL (6.4-8.2)
--- NOTE | 2021-07-05 06:09 | P.PN ---
Date of Service: 07/05/21 Subjective: No acute events overnight. Patient reports feeling a little bit better today regards to his breathing New complaints. Very hard of hearing. on HFNC ROS: 10 point review of systems otherwise negative Physical exam GEN: Alert, oriented, NAD HEENT: Normal conjunctiva, sclera anicteric CV: Regular rate and rhythm, no edema Pulm: mildly labored respirations on HFNC ABD: Soft, nontender, nondistended Integumentary: No rashes Neuro: Normal speech, normal affect Assessment/plan: Acute hypoxemic respiratory failure secondary to COVID-19 pneumonia Hyponatremia, suspect acute; mild HTN Diabetes mellitus type II, qjf-ytrjucw-wtzepbvwc Hearing loss, chronic Sinus tachycardia Hypertension DARCIE, no history of CKD continue steroids, vitamins, anticoagulation, baricitinib Continue Levaquin for 7 days total. Cultures without any growth. Covering for possible bacterial pneumonia. Leukocytosis improved Pulmonology following Tachycardia Improved. h/o hypertension, has been hypotensive the past few days, dc amlodipine (07/05) Continue metoprolol. Xanax p.r.n. for anxiety. Wean oxygen as tolerated. Feeding as tolerated. DARCIE, possibly prerenal. Has had decreased p.o. intake hyponatremia as well. Nephrology consulted We will monitor p.o. intake, briefly discussed with patient unable to maintain sufficient nutrition due to hypoxia, may need dobhoff VTE: Eliquis Code: full Dispo: guarded prognosis, seems to be making slight improvement Total time spent managing patient's care: 35 min
[2021-07-05] MEDS: INSULIN -REGULAR HUMAN 50 UNIT/0.5 ML ML SQ SCH ×4 (08:48→19:45)
[2021-07-05] MEDS: VITAMIN D 1000 UNIT TAB PO SCH (08:49)
[2021-07-05] MEDS: ZINC SULFATE 220 MG CAP PO SCH (08:49)
[2021-07-05] MEDS: FINASTERIDE 5 MG TAB PO SCH (08:49)
[2021-07-05] MEDS: hydroCHLOROthiazide 25 MG TAB PO SCH (08:49)
[2021-07-05] MEDS: APIXABAN 5 MG TABLET PO SCH ×2 (08:49→19:44)
[2021-07-05] MEDS: PANTOPRAZOLE 40MG TABLET PO SCH ×2 (08:49→17:25)
[2021-07-05] MEDS: METHYLPREDNISOLONE 40 MG INJ IV SCH (08:50)
[2021-07-05] MEDS: THIAMINE HCL 100 MG TABLET PO SCH (08:50)
[2021-07-05] MEDS: lisinopriL 20 MG TAB PO SCH (09:00)
--- NOTE | 2021-07-05 09:41 | RAD REPORT ---
EXAM DESCRIPTION: RAD - Chest Single View - 07/05/2021 6:48 am CLINICAL HISTORY: Respiratory failure Chest pain. COMPARISON: Chest Single View dated 07/01/2021; Chest Single View dated 07/01/2021; Chest Single View dated 06/28/2021; Chest Single View dated 06/25/2021 FINDINGS: Portable technique limits examination quality. Moderate bibasilar lung opacities are present, with small right pleural effusion present. Opacities a ppear essentially stable since 07/01/2021. The heart is normal in size. No displaced fractures. IMPRESSION: Stable chest since 07/01/2021 examination.
[2021-07-05] MEDS ORDERED: D50W 25 GM/50 ML SYRINGE IV ONE (10:21)
[2021-07-05] MEDS ORDERED: INSULIN -REGULAR HUMAN 50 UNIT/0.5 ML ML IV ONE (10:23)
[2021-07-05] MEDS ORDERED: D50W 25 GM/50 ML SYRINGE IV PRN (10:23)
[2021-07-05] MEDS ORDERED: GLUCAGON 1 MG/VIAL IM PRN (10:23)
[2021-07-05] MEDS ORDERED: NA CHLORIDE 0.9% 500 ML IV ONE (10:24)
[2021-07-05] MEDS ORDERED: FUROSEMIDE 40 MG/4 ML VIAL IV ONE (11:00)
--- NOTE | 2021-07-05 12:53 | P.PN ---
Subjective Date of Service: 07/05/21 Primary Care Provider: Dr Herrera at [place] Chief Complaint: Covid Pneumonia/ hypoxia Improving O2 requirement declining Review of Systems is unable to be obtained Physical Examination - Vital Signs Temperature: 97.4 F Blood Pressure: 108/73 Pulse: 104 Respirations: 31 Pulse Ox (%): 91 - Physical Exam General: Alert, Cooperative Respiratory: Clear to auscultation bilaterally, Diminished Assessment & Plan - Problems (Diagnosis) (1) Pneumonia due to coronavirus disease 2019 Current Visit: Yes Status: Acute Plan: Resp failure Pt improving/ WBC declining/Cxry poss improvement/ Change to PO decadron.
--- NOTE | 2021-07-05 14:22 | P.CNS ---
Date of Consult: 07/05/21 - Consultation Date of Consult: 07/05/21 Reason for Consultation: Hyponatremia elevation BUN/creatinine and fluid management Primary Care Provider: Hospitalist Dr. Solorzano - History of Present Illness 80-year-old gentleman with significant past medical history of hypertension, hyperlipidemia, patient was admitted to the hospital 25 June with Covid pneumonia patient up on admission kidney function within normal limit patient was maintained on his home medication including lisinopril hydrochlorothiazide patient had elevation in BUN/creatinine yesterday and today with hyponatremia sodium down to 131 for that reason we have been consulted patient had low blood pressure on 03 July down to the [address] with contrast on 25 June no other insulting except SAGAR inhibitor and hydrochlorothiazide curren tly patient stable had good urine output - Allergies Allergies/Reactions: Allergy/AdvReac Type Severity Reaction Status Date / Time No Known Allergies Allergy Unverified 06/25/21 17:57 - Home Medications Medication Instructions Recorded Aspirin Tab [Warren Aspirin*] 325 mg 06/25/21 Atorvastatin Calcium 40 mg PO 06/25/21 Cinnamon Bark [Cinnamon] 1,000 mg PO 06/25/21 Cyanocobalamin (Vitamin B-12) 5,000 mcg PO 06/25/21 [B-12] Finasteride 5 mg PO 06/25/21 Lisinopril [Zestril] 20 mg PO 06/25/21 Metformin HCl 500 mg PO 06/25/21 Multivit-Mins/Iron/Folic/Lycop 06/25/21 [Centrum Men's Tablet] Omeprazole 20 mg PO 06/25/21 hydroCHLOROthiazide 25 mg PO 06/25/21 [Hydrochlorothiazide] lisinopriL [Lisinopril] 10 mg PO 06/25/21 - Review of Systems General: Unremarkable Eyes: Unremarkable ENT: Unremarkable Respiratory: Cough, SOB with Excertion Cardiovascular: Unremarkable Gastrointestinal: Unremarkable Musculoskeletal: Unremarkable Neurological: Weakness, Unremarkable - Past Medical History -: Diabetes -: HTN Has patient received pneumonia vaccine in the past: Yes Diabetic: Yes - Family History Reviewed- Non-Contributory (Hypertension) - Social History Smoking Status: Never smoker Place of Residence: Home - Physical Examination Weight: 184 lb 4.8 oz Height: 5 ft 8 in Temperature: 97.4 F Pulse: 104 Respirations: 31 Blood Pressure: 108/73 (Patient had low blood pressure yesterday down to the 90 patient still have good urine output) Pulse Ox: 91 General: Awake HEENT: Head atraumatic, normocephalic (Patient had difficulty hearing all the communication was with her I think) Neck: Supple, No JVD, lymph nodes, bruit or thyromegaly noted Chest: Other (No deformity clear to auscultation) Lungs: Bilateral good equal air entry, Clear to auscultation Heart: Normal heart sounds Abdomen: Soft, Bowel sounds normal, No guarding, rigidity, tenderness or mass noted, No hepatosplenomegaly, distention or bruit noted Extremities: No leg edema Skin: No rash, ulcer or cellulitis Neurological: No focal neurological deficit (Difficulty hearing) - Studies WBC 19.2 H&H 14.4/43.4 sodium 131 potassium 5 bicarb 24 BUN 62 creatinine 1.2 GFR of 66 earlier potassium 5.6 magnesium 2.9 calcium 8.6 cortisol 24 urine analysis specific gravity 1030 RBC 10 WBC less than 5 urine electrolytes still pending Imagings Data: Reviewed (Chest x-ray interstitial infiltration bilateral) - Assessment and Plan Acute kidney injury multifactorial: -Poor perfusion ATN secondary to low blood pressure -Superimposed SAGAR inhibitor hydrochlorothiazide -Questionable Covid nephropathy even though that I doubted -Prerenal dehydration supported with elevation in the specific gravity and low blood pressure Plan DC hydrochlorothiazide DC lisinopril We will give the patient normal saline bolus then will give Lasix to treat the hyperkalemia We will monitor the patient closely We will maintain the patient on IV fluid of normal saline and will follow up We will send for the work-up including renal ultrasound PC ratio ck Hyponatremia hypothyroidism/adrenal insufficiency has been ruled out mostly secondary to depletion superimposed with hydrochlorothiazide use: DC hydrochlorothiazide Start the patient on IV hydration We will monitor the patient closely Send for the work-up including urine electrolytes and osmolality Hyperkalemia secondary to renal failure superimposed with SAGAR inhibitor DC lisinopril Start the patient on hydration We will give the patient 500 of normal saline bolus then will give Lasix 40 mg single dose We will give the patient D 50 with 10 units of regular insulin IV We repeated lab Hypertension controlled optimal currently on the lower side with event of low blood pressure yesterday systolic down to the 90 with the present of acute kidney injury and hyperkalemia DC hydrochlorothiazide DC lisinopril Start the patient on IV hydration COVID-19 positive test (U07.1, COVID-19) with Acute Pneumonia (J12.89, Other viral pneumonia) (If respiratory failure or sepsis present, add as separate assessment) Follow-up with pulmonary and primary hospitalist Time spent examining the patient placing order [id number] interview with the patient reviewing data of radiology and lab discussing the case with other meat service team member including nursing discussing the case with other subspecialty including pulmonary and hospitalist 65-minute
[2021-07-05 15:45] LABS: UR PROTEIN 17.3 mg/dL (<11.9); Urine Protein/Creatinine Ratio 0.43 ratio (<0.15)
[2021-07-05 17:05] LABS: Urine Appearance CLEAR (Clear); Urine Bilirubin NEGATIVE (Negative); Urine Blood NEGATIVE (Negative); Urine Color YELLOW (Yellow); Urine Glucose NEGATIVE (Negative); Urine Protein NEGATIVE (Negative); Urine Urobilinogen 0.2 mg/dL (0.2-1.0)
[2021-07-05] MEDS: BARICITINIB 2 MG TABLET PO SCH (17:15)
[2021-07-05 17:29] LABS: Urine Microscopic Reflex NO UMIC
--- NOTE | 2021-07-05 18:29 | RAD REPORT ---
EXAM DESCRIPTION: US - Renal Ultrasound-Complete - 07/05/2021 1:27 pm CLINICAL HISTORY: DARCIE COMPARISON: No comparisons FINDINGS: Both kidneys are normal in size, shape and echotexture. The right kidney measures 8.2 cm. No hydronephrosis, focal mass or perinephric fluid. The left kidney measures 9.6 cm. No hydronephrosis, focal mass or perinephric fluid. The urinary bladder is incompletely distended without gross abnormality seen. IMPRESSION: Unremarkable renal sonogram. No evidence of hydronephrosis.
[2021-07-05] MEDS: dexAMETHasone 4 MG TAB PO SCH (19:44)
[2021-07-05] MEDS: ATORVASTATIN 40 MG TAB PO SCH (19:47)
[2021-07-05] MEDS: ALPRAZOLAM 0.5 MG TABLET PO PRN (21:58)
[2021-07-06] MEDS: METOPROLOL TAR 25 MG TAB PO SCH ×2 (05:34→17:31)
[2021-07-06] MEDS: ALPRAZOLAM 0.5 MG TABLET PO PRN (05:34)
[2021-07-06 05:40] LABS: Hematocrit 45.4 % (39.6-49.0); MPV 8.8 fL (7.6-11.3); RBC Red Blood Cell Count 5.29 M/uL (4.33-5.43)
[2021-07-06 05:51] LABS: Albumin 2.6 g/dL (3.4-5.0); Ferritin 2231.1 ng/mL (26-388); Phosphorus 3.9 mg/dL (2.5-4.9); Uric Acid 4.3 mg/dL (3.5-7.2)
--- NOTE | 2021-07-06 06:13 | P.PN ---
Date of Service: 07/06/21 Subjective: Agitated overnight, pulling to take his mask off Patient states she feels more tired, answering questions appropriately this morning Received Xanax x2 overnight ROS: review of systems otherwise negative Physical exam GEN: tired, arousable, oriented HEENT: Normal conjunctiva, sclera anicteric CV: Sinus tachycardia, no edema Pulm: mildly labored respirations on BiPAP ABD: Soft, nontender, nondistended Integumentary: No rashes Neuro: anxious, moves all extremities, hard of hearing Assessment/plan: Acute hypoxemic respiratory failure secondary to COVID-19 pneumonia Hyponatremia, suspect acute; mild HTN Diabetes mellitus type II, kes-zzxozzg-jzzbwsxdm Hearing loss, chronic Sinus tachycardia Hypertension DARCIE, no history of CKD Anxiety Acute delirium continue steroids, vitamins, anticoagulation, baricitinib Completed 7 days of Levaquin, cultures without any growth. Rocephin started by pulm on 07/06, will broaden to meropenem. Concern for bacterial superinfection. Patient worsening overnight 07/05-07/06 Pulmonology following morphine / xanax for anxiety / air hunger h/o hypertension, has been hypotensive the past few days, dc'd amlodipine (07/05) Continue metoprolol. Wean oxygen as tolerated. Feeding as tolerated. To hypoxic/and stable for Dobbhoff placement today DARCIE, likely prerenal, with mild hyponatremia. Nephrology consulted. Received small fluid bolus and Lasix on 07/05 monitor p.o. intake, briefly discussed with patient unable to maintain sufficient nutrition due to hypoxia, may need dobhoff VTE: Eliquis Code: full Dispo: guarded prognosis, updated Total time spent managing patient's care: 35 min
[2021-07-06] MEDS: INSULIN -REGULAR HUMAN 50 UNIT/0.5 ML ML SQ SCH ×4 (07:30→20:02)
[2021-07-06] MEDS: VITAMIN D 1000 UNIT TAB PO SCH (09:10)
[2021-07-06] MEDS: ZINC SULFATE 220 MG CAP PO SCH (09:10)
[2021-07-06] MEDS: FINASTERIDE 5 MG TAB PO SCH (09:10)
[2021-07-06] MEDS: PANTOPRAZOLE 40MG TABLET PO SCH (09:11)
[2021-07-06] MEDS: APIXABAN 5 MG TABLET PO SCH ×2 (09:12→20:00)
[2021-07-06] MEDS: dexAMETHasone 4 MG TAB PO SCH (09:12)
[2021-07-06] MEDS: THIAMINE HCL 100 MG TABLET PO SCH (09:12)
[2021-07-06] MEDS ORDERED: NA CHLORIDE 0.9% 500 ML IV SCH (11:00)
--- NOTE | 2021-07-06 11:51 | P.PN ---
Subjective Date of Service: 07/06/21 Primary Care Provider: Hospitalist Dr. Solorzano Chief Complaint: Covid Pneumonia/ hypoxia resp failure con worsened last night onBIPAP Review of Systems is unable to be obtained Physical Examination - Vital Signs Temperature: 97.3 F Blood Pressure: 104/71 Pulse: 100 Respirations: 37 Pulse Ox (%): 93 - Physical Exam General: Unresponsive Assessment & Plan - Problems (Diagnosis) (1) Pneumonia due to coronavirus disease 2019 Current Visit: Yes Status: Acute Plan: Resp failure WBC elevated add Rocephin, Change to Iv decadron. ABG cxry nc
[2021-07-06] MEDS ORDERED: CEFTRIAXONE 1 GM/NS 50 ML 1 GM/50 ML BAG IV SCH (12:00)
[2021-07-06] MEDS ORDERED: MORPHINE 2 MG/ML SYR IV PRN (12:02)
--- NOTE | 2021-07-06 12:05 | RAD REPORT ---
EXAM DESCRIPTION: RAD - Chest Single View - 07/06/2021 11:25 am CLINICAL HISTORY: f/u covid pneumonia, hypoxia COMPARISON: Chest Single View dated 07/05/2021; Chest Single View dated 07/01/2021; Chest Single View dated 07/01/2021; Chest Single View dated 06/28/2021; Chest For Pe Angio dated 06/25/2021 FINDINGS: Lines: None. Lungs: Similar predominantly basilar airspace disease. Pleural: No significant pleural effusions or pneumothorax. Cardiac: The heart size is within normal limits. Bones: No acute fractures. Other: None IMPRESSION: No significant change in aeration lungs with similar basilar airspace disease concerning for multifocal pneumonia.
[2021-07-06] MEDS ORDERED: LORazepam 2 MG/ML VIAL IV PRN (12:21)
[2021-07-06 12:54] LABS: Arterial Blood Carboxyhemoglob 0.7 % (0-1.5); Blood Gas Oxyhemoglobin 84.4 % (94-97); Blood O2 Saturation 85.5 % (92-98.5)
--- NOTE | 2021-07-06 12:56 | PN ---
Date of Progress Note: 07/06/2021 Subjective: The patient was admitted with COVID pneumonia. Respiratory status has been deteriorated . Over the night, the patient required CPAP back on 100%. The patient's leukocytosis got worse with altered mental status today. Physical Examination: Vital Signs: Blood pressure 104/71, pulse of 100, afebrile. Chest: Crackles bilateral. Heart: S1, S2. Systolic murmur. Abdomen: Soft, nontender. Extremities: No edema. Neuro: The patient is alert, confused. No focality. Laboratory Data: Sodium 132, trending up. Potassium down to 5, bicarb 27, BUN 62, creatinine 1.1, G FR of 77, calcium of 8.6, uric acid 4.3, phosphorus 3.9, magnesium of 3, ferritin 2231, albumin 2.6, corrected calcium is 9.8. Cortisol level of 24. Urine PC ratio 0.4. Urine sodium of 79, potassium of 43. Current Medications: The patient on is include Eliquis, atorvastatin, metoprolol, alprazolam, the manuel frey received Lasix yesterday, dexamethasone, Zofran, finasteride, bacitracin, cholecalciferol. Assessment And Plan: 1.Acute kidney injury, multifactorial, secondary to prerenal, superimposed with hydrochlorothiazide and lisinopril was complicated with hyperkalemia. Currently looked to me still on the dry side. Obs tructive uropathy has been ruled out and doubt to be any contrast-induced as not fitting the timing. Anyhow, the patient is on the recovery phase currently. As I said, the patient looked on the dry si de. I am going to keep holding hydrochlorothiazide and lisinopril, start the patient on gentle hydra tion with normal saline of 50 per hour for total of only 500 and we will monitor the patient closely. 2.Hyponatremia secondary to depletional, superimposed with hydrochlorothiazide. Keep holding hydroc hlorothiazide. Sodium trending up. We will start the patient on IV hydration. 3.Hyperkalemia resolved. Keep holding SAGAR inhibitor. 4.Hypertension, currently blood pressure controlled. Keep holding lisinopril and hydrochlorothiazid e. 5.COVID pneumonia as by primary. 6.Leukocytosis with the finding on the chest x-ray. We will discuss with the hospitalist regarding adding any antibacterial coverage given the localization on the CT on the pneumonia and leukocytosis. 7.Disproportion in BUN and creatinine, mostly secondary to the steroid and catabolic state/dehydrati on. We will start normal saline and we will follow up. Time spent examining the patient, [id number], placing orders, discussing the case with the team mem balta including Nursing, hospitalist and Pulmonary 35 minutes. YAIR Voice ID: [id number] Report ID: [id number]
[2021-07-06] MEDS: Meropenem 1 GM/100 ML BAG IV SCH ×2 (14:47→20:00)
[2021-07-06] MEDS: BARICITINIB 2 MG TABLET PO SCH (16:00)
[2021-07-06] MEDS: dexAMETHasone 4 MG/ML VIAL IV SCH ×2 (17:36→23:55)
[2021-07-06] MEDS: MORPHINE 2 MG/ML SYR IV PRN ×3 (18:16→23:52)
[2021-07-06] MEDS: ATORVASTATIN 40 MG TAB PO SCH (20:00)
[2021-07-06] MEDS ORDERED: HALOPERIDOL LACT 5 MG/ML INJ IV PRN (21:42)
[2021-07-06] MEDS ORDERED: METOPROLOL TARTRATE 5 MG/5 ML INJ IV ONE (22:14)
[2021-07-06] MEDS: METOPROLOL TARTRATE 5 MG/5 ML INJ IV SCH (23:50)
[2021-07-07] MEDS: WATER FOR INJ,STERILE 10 ML IM PRN ×3 (01:05→15:48)
[2021-07-07] MEDS: ZIPRASIDONE MESYLA 20 MG/VIAL IM PRN ×4 (01:05→20:45)
[2021-07-07] MEDS ORDERED: WATER FOR INJ,STERILE 10 ML ONE (01:18)
[2021-07-07] MEDS ORDERED: ZIPRASIDONE MESYLA 20 MG/VIAL IM ONE (01:21)
[2021-07-07] MEDS: MORPHINE 2 MG/ML SYR IV PRN ×5 (01:54→20:02)
[2021-07-07] MEDS ORDERED: NA CHLORIDE 0.9% 500 ML IV ONE ×2 (04:57→11:09)
[2021-07-07 05:12] LABS: Hematocrit 46.9 % (39.6-49.0); MPV 8.8 fL (7.6-11.3); RBC Red Blood Cell Count 5.43 M/uL (4.33-5.43)
[2021-07-07] MEDS: METOPROLOL TARTRATE 5 MG/5 ML INJ IV SCH ×4 (05:12→12:00)
[2021-07-07] MEDS: Meropenem 1 GM/100 ML BAG IV SCH ×3 (05:12→20:02)
[2021-07-07] MEDS ORDERED: NA CHLORIDE 0.9% 0 ML ONE (05:34)
--- NOTE | 2021-07-07 05:46 | P.PN ---
Date of Service: 07/07/21 Subjective: Agitated overnight again, sahara with slight improvement. anxiety, not comfortable with mask ROS: review of systems difficult to fully obtain Physical exam GEN: Anxious appearing, mild/moderate distress HEENT: Normal conjunctiva, sclera anicteric CV: Sinus tachycardia, no edema Pulm: labored respirations on BiPAP ABD: Soft, nontender, nondistended Integumentary: No rashes Neuro: anxious, moves all extremities, hard of hearing Assessment/plan: Acute hypoxemic respiratory failure secondary to COVID-19 pneumonia Possible bacterial superinfection/pneumonia Hyponatremia, suspect acute; mild HTN Diabetes mellitus type II, oop-izyhqri-aakhggizh Hearing loss, chronic Sinus tachycardia Hypertension DARCIE, no history of CKD Anxiety Acute delirium continue steroids, vitamins, anticoagulation, baricitinib Completed 7 days of Levaquin, cultures without any growth. Rocephin started by pulm on 07/06, broadened to meropenem on 07/06. Concern for bacterial superinfection. Patient worsening overnight 07/05-07/06 Pulmonology following morphine for anxiety / air hunger Not having much improvement, will repeat trial of benzodiazepine h/o hypertension, has been hypotensive the past few days, dc'd amlodipine (07/05) with improvement. Continue metoprolol. Wean oxygen as tolerated. Nursing feel patient is too unstable to tolerate Dobbhoff placement for now, especially his agitation, risk to pull this out. PICC line ordered, can start TPN once placed DARCIE, likely prerenal, with mild hyponatremia. Nephrology consulted. Received small fluid bolus and Lasix on 07/05 Will give small bolus today. Minimize fluid intake May need intubation if continues to pull mask off, and if unable to control patient's actions/anxiety. VTE: Adriel transitioned to lovenox (07/07) due to inability to tolerate p.o. Code: full Dispo: guarded prognosis, updated Total time spent managing patient's care: 35 min
[2021-07-07 05:59] LABS: Albumin 2.5 g/dL (3.4-5.0); C-Reactive Protein 80.4 mg/L (<3.00); Ferritin 3867.2 ng/mL (26-388); Magnesium 3.4 mg/dL (1.8-2.4); Phosphorus 4.6 mg/dL (2.5-4.9); Potassium 5.5 mmol/L (3.5-5.1)
[2021-07-07] MEDS: INSULIN -REGULAR HUMAN 50 UNIT/0.5 ML ML SQ SCH ×3 (06:10→17:55)
[2021-07-07] MEDS ORDERED: NA CHLORIDE 0.9% 500 ML ONE (06:11)
--- NOTE | 2021-07-07 06:13 | P.PN ---
Subjective Date of Service: 07/07/21 Primary Care Provider: Hospitalist Dr. Solorzano Chief Complaint: Covid Pneumonia/ hypoxia Has been on bipap. Physical Examination - Vital Signs Temperature: 96.7 F Blood Pressure: 114/64 Pulse: 135 Respirations: 15 Pulse Ox (%): 98 - Physical Exam General: Other (In respi distress) HEENT: Atraumatic, Normocephalic, Other (+Bipap) Neck: Supple Respiratory: Other (Symmetric chest expansion) Cardiovascular: No rubs, No murmurs Gastrointestinal: Soft and benign Musculoskeletal: No clubbing Integumentary: No warmth Neurological: Normal tone Urinary: Other (No bladder distention) Assessment And Plan - Plan # DARCIE 2/2 prerenal state in the setting of HCTZ & lisinopril use, aggravated by ATN/sepsis SCr increased Hold hydrochlorothiazide and lisinopril No JVD, no sig LE edema currently Fluid loss/d = 1L/d IWL + 1L/d urine water loss = 2L/d Volume intake limit to 2L/d or 80 cc/hr Clinimix as below Monitor I/O, renal panel # Nutrition Start Clinimix 60 cc/hr # Hyponatremia Corrected serum Na now normal Monitor # Hyperkalemia Serum K 5.5 # Sinus tach 2/2 sepsis + acute respi failure Lopressor 5 mg IV q2h prn for HR > 110 bpm # Acute respiratory failure 2/2 coivd pna Mngt per other services On bipap currently # Sepsis 2/2 covid pna Abx per primary team Start Phenylephrine, keep MAP > 70
[2021-07-07] MEDS: dexAMETHasone 4 MG/ML VIAL IV SCH ×2 (08:21→16:15)
[2021-07-07] MEDS: ENOXAPARIN 80 MG/0.8 ML SQ SCH ×2 (08:21→20:02)
[2021-07-07] MEDS: FINASTERIDE 5 MG TAB PO SCH (08:22)
[2021-07-07] MEDS: VITAMIN D 1000 UNIT TAB PO SCH (08:22)
[2021-07-07] MEDS: THIAMINE HCL 100 MG TABLET PO SCH (08:22)
[2021-07-07] MEDS ORDERED: FAMOTIDINE 20 MG TAB PO SCH (09:00)
[2021-07-07] MEDS ORDERED: LORazepam 2 MG/ML VIAL IV ONE (11:07)
[2021-07-07] MEDS: VANCOMYCIN 1.25 GM in NA CHLORIDE 0.9% 250 ML IVPB SCH (11:12)
--- NOTE | 2021-07-07 11:33 | RAD REPORT ---
EXAM DESCRIPTION: RAD - Chest Single View - 07/07/2021 11:03 am CLINICAL HISTORY: f/u covid pneumonia COMPARISON: Chest Single View dated 07/06/2021; Chest Single View dated 07/05/2021; Chest Single Vie w dated 07/01/2021; Chest Single View dated 07/01/2021 FINDINGS: Lines: None. Lungs: Moderate basilar airspace disease similar to 07/06/2021 Pleural: No significant pleural effusions or pneumothorax. Cardiac: The heart size is within normal limits. Bones: No acute fractures. Other: IMPRESSION: No significant change in moderate bilateral airspace disease.
[2021-07-07] MEDS: BARICITINIB 2 MG TABLET PO SCH (12:28)
--- NOTE | 2021-07-07 13:08 | P.PN ---
Subjective Date of Service: 07/07/21 Primary Care Provider: Hospitalist Dr. Solorzano Chief Complaint: Covid Pneumonia/ hypoxia Patient is not doing well condition has been progressively deteriorating now on persistent BiPAP 100% FiO2 Review of Systems is unable to be obtained Physical Examination - Vital Signs Temperature: 96.7 F Blood Pressure: 106/59 Pulse: 124 Respirations: 32 Pulse Ox (%): 85 - Physical Exam General: Unresponsive Assessment & Plan - Problems (Diagnosis) (1) Pneumonia due to coronavirus disease 2018 Current Visit: Yes Status: Acute Plan: Respiratory failure patient is not doing well his white count is elevated patient is on meropenem vancomycin started due to positive blood cultures chest x-ray diffuse bilateral interstitial changes potassium elevated start on D5 half-normal saline and to receive TPN
[2021-07-07] MEDS ORDERED: D5 0.45 NS 1,000 ML IV SCH (14:00)
--- NOTE | 2021-07-07 14:34 | RAD REPORT ---
EXAM DESCRIPTION: RAD - Chest Single View - 07/07/2021 2:28 pm CLINICAL HISTORY: Picc line placement COMPARISON: Chest Single View dated 07/07/2021; Chest Single View dated 07/06/2021; Chest Single Vie w dated 07/05/2021; Chest Single View dated 07/01/2021 FINDINGS: Portable chest was obtained following placement of a left upper extremity PICC line. The c atheter tip projects over the SVC..
[2021-07-07] MEDS: LORazepam 2 MG/ML VIAL IV PRN ×2 (15:31→21:53)
[2021-07-07] MEDS: METOPROLOL TARTRATE 5 MG/5 ML INJ IV PRN ×2 (16:10→22:38)
[2021-07-07] MEDS ORDERED: AA 5%/D20W/ELECTROLYTES-TPN 2,000 ML IV SCH ×2 (17:00)
[2021-07-07] MEDS ORDERED: AA 5%/D20W/ELECTROLYTES-TPN 2,000 ML, Lipids 20% 250 ML with MULTIVITAMINS INJ 10 ML IV SCH ×3 (17:00)
[2021-07-07] MEDS ORDERED: AA 5%/D20W/ELECTROLYTES-TPN 2,000 ML with MULTIVITAMINS INJ 10 ML IV SCH ×6 (17:00)
[2021-07-07] MEDS ORDERED: FUROSEMIDE 40 MG/4 ML VIAL IV STA (20:19)
[2021-07-07] MEDS ORDERED: VANCOMYCIN 1.5 GM in NA CHLORIDE 0.9% 500 ML IVPB SCH (21:00)
[2021-07-08] MEDS: dexAMETHasone 4 MG/ML VIAL IV SCH ×3 (00:20→16:42)
[2021-07-08] MEDS: INSULIN -REGULAR HUMAN 50 UNIT/0.5 ML ML SQ SCH ×4 (00:20→16:42)
[2021-07-08] MEDS: MORPHINE 2 MG/ML SYR IV PRN ×4 (01:23→22:13)
[2021-07-08 05:04] LABS: Hematocrit 39.8 % (39.6-49.0); MPV 8.7 fL (7.6-11.3); RBC Red Blood Cell Count 4.63 M/uL (4.33-5.43)
[2021-07-08] MEDS: Meropenem 1 GM/100 ML BAG IV SCH ×3 (05:30→20:20)
--- NOTE | 2021-07-08 05:54 | P.PN ---
Date of Service: 07/08/21 Subjective: continues with confusion/agitation, pulls mask HR in 90s at rest, up to 120s when agitated. ROS: review of systems difficult to fully obtain Physical exam GEN: Anxious appearing, mild/moderate distress HEENT: Normal conjunctiva, sclera anicteric, BIPAP in place CV: Sinus tachycardia, no edema Pulm: labored respirations on BiPAP ABD: Soft, nontender, nondistended Integumentary: No rashes Neuro: anxious, moves all extremities, hard of hearing Assessment/plan: Acute hypoxemic respiratory failure secondary to COVID-19 pneumonia Possible bacterial superinfection/pneumonia Hyponatremia, suspect acute; mild HTN Diabetes mellitus type II, bcm-cxsujvq-txfzoxarf Hearing loss, chronic Sinus tachycardia Hypertension DARCIE, no history of CKD Anxiety Acute delirium continue steroids, vitamins, anticoagulation, baricitinib Completed 7 days of Levaquin, cultures without any growth. Rocephin started by pulm on 07/06, broadened to meropenem on 07/06. Concern for bacterial superinfection. Patient worsening overnight 07/05-07/06 07/06 blood culture - gram stain GPC+, vanc added 07/07, f/u results. repeat cultures obtained Pulmonology following morphine for anxiety / air hunger improved somewhat with ativan h/o hypertension, has been hypotensive the past few days, dc'd amlodipine (07/05) with improvement. Continue metoprolol. Wean oxygen as tolerated. PICC and TPN placed/started on 07/08 DARCIE, likely prerenal, with mild hyponatremia. Nephrology consulted. Received small fluid bolus and Lasix on 07/05, improved Minimize fluid intake May need intubation if continues to pull mask off, and if unable to control patient's actions/anxiety. VTE: Adriel transitioned to lovenox (07/07) due to inability to tolerate p.o. Code: full Dispo: guarded prognosis, updated Total time spent managing patient's care: 35 min
[2021-07-08 05:57] LABS: Albumin 2.2 g/dL (3.4-5.0); BUN Blood Urea Nitrogen 53 mg/dL (7-18); Bicarbonate 28 mmol/L (21-32); Ferritin 3341.3 ng/mL (26-388); Glucose Level 293 mg/dL (74-106); Magnesium 3.3 mg/dL (1.8-2.4); Phosphorus 2.6 mg/dL (2.5-4.9); Potassium 5.1 mmol/L (3.5-5.1); Sodium Level 142 mmol/L (136-145)
[2021-07-08] MEDS ORDERED: FUROSEMIDE 40 MG/4 ML VIAL IV STA (07:09)
--- NOTE | 2021-07-08 07:12 | P.PN ---
Subjective Date of Service: 07/08/21 Primary Care Provider: Hospitalist Dr. Solorzano Chief Complaint: Covid Pneumonia/ hypoxia Remains on bipap. On TPN. Physical Examination - Vital Signs Temperature: 99.1 F Blood Pressure: 93/67 Pulse: 121 Respirations: 23 Pulse Ox (%): 97 - Physical Exam General: Other (Appears acutely ill) HEENT: Atraumatic, Normocephalic, Other (+bipap) Neck: Supple, JVD not distended Respiratory: Other (Symmetric chest expansion) Cardiovascular: No rubs, No murmurs Gastrointestinal: Soft and benign Musculoskeletal: No clubbing Integumentary: No warmth Neurological: Normal tone Urinary: Man catheter External genitalia: Deferred Rectal: Deferred Assessment And Plan - Plan # DARCIE 2/2 prerenal state in the setting of HCTZ & lisinopril use, aggravated by ATN/sepsis SCr improved to 0.8 Hold hydrochlorothiazide and lisinopril No JVD, no sig LE edema currently Fluid loss/d = 1L/d IWL + 1.5L/d urine water loss = 2.5L/d Volume intake limit to 2-2.5 L/d or about 80 cc/hr total Clinimix continue at 60 cc/hr Monitor I/O, renal panel # Nutrition Cont Clinimix 60 cc/hr # Hyperkalemia Serum K 5.1 Lasix IV x 1 # HyperMg Lasix IV x 1 # Sinus tach 2/2 sepsis + acute respi failure Cont Lopressor 5 mg IV q2h prn for HR > 110 bpm Phenylephrine gtt prn # Acute respiratory failure 2/2 coivd pna Mngt per other services On bipap currently # Sepsis 2/2 covid pna Abx per primary team Currently off Phenylephrine gtt, resume as indicated to maintain MAP > 70
[2021-07-08] MEDS: FAMOTIDINE 20 MG/2 ML VIAL IV SCH (07:25)
[2021-07-08] MEDS: ENOXAPARIN 80 MG/0.8 ML SQ SCH ×2 (07:26→20:18)
[2021-07-08] MEDS: THIAMINE HCL 100 MG TABLET PO SCH (09:00)
[2021-07-08] MEDS: FINASTERIDE 5 MG TAB PO SCH (09:00)
[2021-07-08] MEDS: METOPROLOL TARTRATE 5 MG/5 ML INJ IV PRN ×5 (09:41→22:34)
[2021-07-08] MEDS: VANCOMYCIN 1.25 GM in NA CHLORIDE 0.9% 250 ML IVPB SCH (11:24)
--- NOTE | 2021-07-08 13:07 | P.PN ---
Subjective Date of Service: 07/08/21 Primary Care Provider: Hospitalist Dr. Solorzano Chief Complaint: Covid Pneumonia/ hypoxia Patient still continues to have significant desaturation of the BiPAP mask currently on 65% FiO2 Review of Systems is unable to be obtained Physical Examination - Vital Signs Temperature: 97.1 F Blood Pressure: 129/68 Pulse: 117 Respirations: 27 Pulse Ox (%): 95 - Physical Exam General: Unresponsive Assessment & Plan - Problems (Diagnosis) (1) Pneumonia due to coronavirus disease 2019 Current Visit: Yes Status: Acute Plan: Respiratory failure patient not doing well labs reviewed white count is improving vital signs stable see insert a Dobbhoff soon as possible patient is on TPN blood cultures are most likely contaminant
[2021-07-08] MEDS: BARICITINIB 2 MG TABLET PO SCH (16:00)
[2021-07-08] MEDS ORDERED: AA 5%/D20W/ELECTROLYTES-TPN 2,000 ML, Lipids 20% 250 ML with MULTIVITAMINS INJ 10 ML IV SCH ×3 (17:00)
[2021-07-08] MEDS: INSULIN GLARGINE 100 UNITS/ML SQ SCH (20:18)
--- NOTE | 2021-07-08 21:48 | RAD REPORT ---
EXAM DESCRIPTION: RAD - Abdomen 1 View (KUB) - 07/08/2021 9:14 pm CLINICAL HISTORY: Dobbhoff verification placement COMPARISON: No comparisons FINDINGS: Nonobstructive bowel gas pattern. No acute osseous abnormality.Visualized lungs are unrema rkable.No abnormal calcifications. Feeding tube tip overlies the lower stomach. IMPRESSION: Nonobstructive bowel gas pattern. Feeding tube tip overlies the lower stomach.
[2021-07-08] MEDS ORDERED: GLUCERNA 1.2 CAL 1,000 ML BOT FT SCH (22:00)
[2021-07-09] MEDS: dexAMETHasone 4 MG/ML VIAL IV SCH ×3 (00:12→16:24)
[2021-07-09] MEDS: INSULIN -REGULAR HUMAN 50 UNIT/0.5 ML ML SQ SCH ×4 (00:12→16:50)
[2021-07-09] MEDS: MORPHINE 2 MG/ML SYR IV PRN ×3 (00:33→22:43)
[2021-07-09] MEDS: METOPROLOL TARTRATE 5 MG/5 ML INJ IV PRN ×8 (02:27→22:42)
[2021-07-09 05:36] LABS: Hematocrit 41.4 % (39.6-49.0); RBC Red Blood Cell Count 4.75 M/uL (4.33-5.43)
--- NOTE | 2021-07-09 05:52 | P.PN ---
Date of Service: 07/09/21 Subjective: With improvement, did not require any medications for agitation overnight much more alert Able to read/writing for conversation. No new complaints, does not like the mask ROS: review of systems difficult to fully obtain, denies new issues Physical exam GEN: Anxious appearing, NAD HEENT: Normal conjunctiva, sclera anicteric, BIPAP in place CV: Sinus tachycardia, no edema Pulm: labored respirations on BiPAP ABD: Soft, nontender, nondistended Integumentary: No rashes Neuro: anxious, moves all extremities, hard of hearing Assessment/plan: Acute hypoxemic respiratory failure secondary to COVID-19 pneumonia Possible bacterial superinfection/pneumonia Hyponatremia, suspect acute; mild HTN Diabetes mellitus type II, zec-nwhemfp-vqcpkgpst Hearing loss, chronic Sinus tachycardia Hypertension DARCIE, no history of CKD Anxiety Acute delirium continue steroids, vitamins, anticoagulation, baricitinib Completed 7 days of Levaquin, cultures without any growth. Rocephin started by pulm on 07/06, broadened to meropenem on 07/06. Concern for bacterial superinfection. Patient worsening overnight 07/05-07/06 07/06 blood culture - gram stain GPC+, vanc added 07/07, f/u results. repeat cultures obtained, initial CONS, repeat with GPC again Pulmonology following morphine for anxiety / air hunger, improved somewhat with ativan h/o hypertension, has been hypotensive, dc'd amlodipine (07/05) with improveme nt. Continue metoprolol for tachycardia as BP allows. Nephrology started phenylephrine for blood pressure, so low use of metoprolol Wean oxygen as tolerated. PICC and TPN placed/started on 07/08, Dobbhoff placed 07/09, transitioning to tube feeds now DARCIE, likely prerenal, with mild hyponatremia. Nephrology consulted. Received small fluid bolus and Lasix on 07/05, improved Minimize fluid intake VTE: Eliquis transitioned to lovenox (07/07) due to inability to tolerate p.o., now with dobhoff may be able to switch back Code: full Dispo: guarded prognosis Total time spent managing patient's care: 35 min
[2021-07-09] MEDS: Meropenem 1 GM/100 ML BAG IV SCH ×3 (06:05→21:04)
[2021-07-09 06:09] LABS: Albumin 2.2 g/dL (3.4-5.0); BUN Blood Urea Nitrogen 48 mg/dL (7-18); Bicarbonate 29 mmol/L (21-32); Ferritin 2706.9 ng/mL (26-388); Glucose Level 250 mg/dL (74-106); Magnesium 2.8 mg/dL (1.8-2.4); Phosphorus 2.1 mg/dL (2.5-4.9); Potassium 4.9 mmol/L (3.5-5.1); Sodium Level 146 mmol/L (136-145)
[2021-07-09] MEDS: FAMOTIDINE 20 MG/2 ML VIAL IV SCH (08:39)
[2021-07-09] MEDS: ENOXAPARIN 80 MG/0.8 ML SQ SCH (08:39)
[2021-07-09] MEDS: THIAMINE HCL 100 MG TABLET PO SCH (08:40)
[2021-07-09] MEDS: FINASTERIDE 5 MG TAB PO SCH (08:40)
[2021-07-09] MEDS ORDERED: GLUCERNA 1.2 CAL 1,000 ML BOT RTH SCH (10:05)
[2021-07-09] MEDS: VANCOMYCIN 1.25 GM in NA CHLORIDE 0.9% 250 ML IVPB SCH (11:00)
--- NOTE | 2021-07-09 11:38 | P.PN ---
Subjective Date of Service: 07/09/21 Primary Care Provider: Hospitalist Dr. Solorzano Chief Complaint: Covid Pneumonia/ hypoxia Patient is doing better oxygen requirements declining has a Dobbhoff tube more alert Review of Systems is unable to be obtained Physical Examination - Vital Signs Temperature: 96.9 F Blood Pressure: 128/72 Pulse: 104 Respirations: 26 Pulse Ox (%): 93 - Physical Exam General: Alert, Cooperative Assessment & Plan - Problems (Diagnosis) (1) Pneumonia due to coronavirus disease 2019 Current Visit: Yes Status: Acute Plan: Respiratory failure patient is improving enough TPN continue with nasogastric nutrition oxygen requirements are declining vital signs stable increase NG water flushes changed to nasogastric Xarelto DC Lovenox
--- NOTE | 2021-07-09 12:38 | PN ---
Date of Progress Note: 07/09/2021 Subjective: The patient was admitted with COVID pneumonia, acute kidney injury secondary to prerenal , SAGAR inhibitor and hydrochlorothiazide. The patient was weaned from vent and placed on BiPAP, and p lanned for high-flow. Today, the patient is feeling better. The patient was on TPN, started on Dobh off. Physical Examination: Vital Signs: When I saw the patient; blood pressure 128/72, pulse of 104. The patient had good urin e output of 2400. The patient negative of 900. Chest: Crackles bilateral. Heart: S1, S2. Systolic murmur. Abdomen: Soft, nontender. Extremity: No edema. Neuro: Alert. No focality. The patient has difficulty hearing. Laboratory Data: WBC 27.4, H and H 13.9/41.4. Sodium 146, potassium 4.9, bicarb 29, BUN 48, creatin ine 0.7, blood sugar 239. Ferritin 2700, trending down. Albumin 2.3, trending down. Current Medications: The patient on include Lovenox, meropenem, vancomycin, hydralazine, Geodon, Las ix was given yesterday, Pepcid, insulin 10 units at bedtime, finasteride, and morphine. Assessment And Plan: 1.Acute kidney injury, multifactorial, secondary to prerenal, superimposed with hydrochlorothiazide and SAGAR inhibitor, recovered, resolved. Looked to me still on the dry side. The patient was started on tube feeding. I am going to add free water 100 every 6 hours and we will follow up. 2.Hyponatremia, resolved. Currently hypernatremia. Keep holding hydrochlorothiazide. We will hold the Lasix. We will start free water. 3.Hypertension, controlled, optimal with the presence of recent acute kidney injury. Blood pressure has been controlled currently. We will keep holding hydrochlorothiazide and lisinopril. 4.Hyperkalemia, resolved. 5.COVID pneumonia as by Pulmonary and Primary. JADE/MODL Voice ID: [id number] Report ID: [id number]
[2021-07-09] MEDS: BARICITINIB 2 MG TABLET PO SCH (16:24)
[2021-07-09] MEDS: RIVAROXABAN 20 MG TABLET PO SCH (16:24)
[2021-07-09] MEDS: WATER FOR INJ,STERILE 10 ML IM PRN (21:05)
[2021-07-09] MEDS: INSULIN GLARGINE 100 UNITS/ML SQ SCH (21:06)
[2021-07-09] MEDS: ZIPRASIDONE MESYLA 20 MG/VIAL IM PRN (21:06)
--- NOTE | 2021-07-09 21:41 | RAD REPORT ---
EXAM DESCRIPTION: RAD - Abdomen 1 View (KUB) - 07/09/2021 9:07 pm CLINICAL HISTORY: S/P Dobhoff insertion COMPARISON: KUB July 08 FINDINGS: Feeding tube is in place. The tip is curled at the GE junction. Tip is directed superiorly is in the distal most esophagus. There is an acute bend or kink in the tubing distally that may limi t function. Bowel gas pattern is nonspecific. No free air or pneumatosis. No suspicious calcifications. IMPRESSION: Feeding tube is in place curled at the GE junction. Tip is directed superiorly back into the distal esophagus.
[2021-07-10] MEDS: INSULIN -REGULAR HUMAN 50 UNIT/0.5 ML ML SQ SCH ×5 (00:52→23:36)
[2021-07-10] MEDS: dexAMETHasone 4 MG/ML VIAL IV SCH ×3 (00:53→16:31)
[2021-07-10 05:18] LABS: Hematocrit 39.9 % (39.6-49.0); MPV 9.1 fL (7.6-11.3)
[2021-07-10] MEDS: Meropenem 1 GM/100 ML BAG IV SCH ×3 (05:18→20:28)
[2021-07-10 05:28] LABS: ALT/SGPT 51 U/L (12-78); AST/SGOT 46 U/L (15-37); Albumin 2.1 g/dL (3.4-5.0); Alkaline Phosphatase 114 U/L (45-117); BUN Blood Urea Nitrogen 59 mg/dL (7-18); Bicarbonate 30 mmol/L (21-32); Bilirubin Direct 0.3 mg/dL (0-0.2); Bilirubin Total 0.6 mg/dL (0.2-1.0); Glucose Level 177 mg/dL (74-106); Magnesium 2.9 mg/dL (1.8-2.4); Phosphorus 2.3 mg/dL (2.5-4.9); Potassium 4.9 mmol/L (3.5-5.1); Protein, Total 5.6 g/dL (6.4-8.2); Sodium Level 150 mmol/L (136-145)
--- NOTE | 2021-07-10 05:50 | P.PN ---
Date of Service: 07/10/21 Subjective: Still with some confusion, worse intermittently. Overall better Remains very hypoxic, difficult to wean oxygen. Continues with tachycardiaworse with agitation Patient does not like BiPAP mask ROS: review of systems difficult to fully obtain, denies new issues Physical exam GEN: Anxious appearing, NAD, gives me a thumbs up HEENT: Normal conjunctiva, sclera anicteric, BIPAP in place CV: Sinus tachycardia, no edema Pulm: labored respirations on BiPAP ABD: Soft, nontender, nondistended Integumentary: No rashes Neuro: anxious, moves all extremities, hard of hearing Assessment/plan: Acute hypoxemic respiratory failure secondary to COVID-19 pneumonia Possible bacterial superinfection/pneumonia Hyponatremia, suspect acute; mild HTN Diabetes mellitus type II, hak-nvndbze-ydkoxnqqx Hearing loss, chronic Sinus tachycardia Hypertension DARCIE, no history of CKD Anxiety Acute delirium continue steroids, vitamins, anticoagulation, baricitinib Completed 7 days of Levaquin, cultures without any growth. Rocephin started by pulm on 07/06, broadened to meropenem on 07/06. Concern for bacterial superinfection. Patient worsening overnight 07/05-07/06 07/06 blood culture - gram stain GPC+, vanc added 07/07, f/u results. repeat cultures obtained, initial CONS, repeat with GPC again Pulmonology following morphine for anxiety / air hunger, improved somewhat with ativan h/o hypertension, has been hypotensive, dc'd amlodipine (07/05) with improvement. Continue metoprolol for tachycardia as BP allows. Nephrology started phenylephrine for blood pressure, so low use of metoprolol Wean oxygen as tolerated. PICC and TPN placed/started on 07/08, Dobbhoff placed 07/09, continue tube feeds DARCIE, likely prerenal, with mild hyponatremia. Nephrology consulted. Received small fluid bolus and Lasix on 07/05, improved. Patient now with hypernatremia VTE: Eliquis transitioned to lovenox (07/07) due to inability to tolerate p.o., now with dobhoff able to switch back Code: full Dispo: guarded prognosis Total time spent managing patient's care: 35 min
[2021-07-10] MEDS: METOPROLOL TARTRATE 5 MG/5 ML INJ IV PRN ×6 (07:07→19:17)
[2021-07-10] MEDS: FINASTERIDE 5 MG TAB PO SCH (08:37)
[2021-07-10] MEDS: FAMOTIDINE 20 MG/2 ML VIAL IV SCH (08:37)
[2021-07-10] MEDS: THIAMINE HCL 100 MG TABLET PO SCH (08:37)
--- NOTE | 2021-07-10 10:53 | RAD REPORT ---
EXAM DESCRIPTION: Samy Single View07/10/2021 10:42 am CLINICAL HISTORY: Shortness of breath COMPARISON: July 07, 2021 FINDINGS: Mild worsening in mozugpmu-qb-crzmdq predominately bibasilar opacities. The heart is normal size IMPRESSION: Mild worsening in ailixwbx-pt-dzabtk predominately bibasilar lung opacities probably pn eumonia
--- NOTE | 2021-07-10 11:43 | P.PN ---
Subjective Date of Service: 07/10/21 Primary Care Provider: Hospitalist Dr. Solorzano Chief Complaint: Covid Pneumonia/ hypoxia Nto doign well still veery hypoxic CXRY worsened, O2 requirements higher Review of Systems is unable to be obtained Physical Examination - Vital Signs Temperature: 97 F Blood Pressure: 113/71 Pulse: 112 Respirations: 27 Pulse Ox (%): 89 - Physical Exam General: Alert, Moderate distress Assessment & Plan - Problems (Diagnosis) (1) Pneumonia due to coronavirus disease 2019 Current Visit: Yes Status: Acute Plan: Resp failure Cey worse? Very hypoxic/ hypernatremic/ WBC declining/ pt willneed IVfluids
[2021-07-10] MEDS ORDERED: D5W 1,000 ML IV SCH (14:00)
[2021-07-10 14:14] LABS: Blood Gas Oxyhemoglobin 89.8 % (94-97); Blood O2 Saturation 91.6 % (92-98.5)
--- NOTE | 2021-07-10 14:38 | PN ---
Date of Progress Note: 07/10/2021 Subjective: The patient was admitted with COVID pneumonia, respiratory failure. Overnight, TPN has been discontinued and placed on Glucerna and free water. The patient's hypernatremia got worse. Physical Examination: Vital Signs: Blood pressure 135/75, pulse of 122, afebrile. Chest: Crackles bilateral. Heart: S1, S2. Tachycardic. Abdomen: Soft, nontender. Extremities: No edema. Neuro: The patient is sleepy. Moving 4 extremities. No focality. Laboratory Data: WBC 22.9, H and H 12.9/39.9. Sodium 150, potassium 4.9, bicarb 30, BUN 59, creatinine 0.7, calcium 8.6, phosphorus 2.3, magnesium 2.9, albumin 2.1. Corrected calcium is 10.2. Current Medications: The patient on include meropenem, Xarelto, metoprolol, Glucerna, Pepcid, Zofran, bacitracin, morphine, multivitamin. Assessment And Plan: 1. Acute kidney injury, multifactorial, secondary to prerenal, superimposed with hydrochlorothiazide and SAGAR inhibitor, recovered, resolved. The patient still looked on the dry side. I am going to continue hydration. 2. 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 I am going to go ahead and increase his Lantus to 12 units to establish better blood sugar. We will discontinue his multivitamin to avoid any hypercalcemia. Increase free water to 250 every 4 hours. We will start the patient on D5 with 10 units of regular insulin to over come the hyperglycemia that can be induced by D5 infusion and we will continue to monitor. 3. Hypertension, controlled, optimal. Continue current treatment. 4. Hyperkalemia, resolved. 5. COVID pneumonia and respiratory failure as by primary. time spend exam the patient face to face , reviewing data including radiology and lab , placing order discussing the case with other steam and power supervisor including hospitalist , 45 min YAIR Voice ID: [id number] Report ID: [id number] [facility]PITALVioleta
[2021-07-10] MEDS ORDERED: INSULIN REGULAR HUMAN IV ONE (15:00)
[2021-07-10] MEDS ORDERED: D5W IV ONE (15:00)
[2021-07-10] MEDS: BARICITINIB 2 MG TABLET PO SCH (16:31)
[2021-07-10] MEDS: RIVAROXABAN 20 MG TABLET PO SCH (16:31)
[2021-07-10] MEDS: MORPHINE 2 MG/ML SYR IV PRN (18:35)
[2021-07-10] MEDS: INSULIN GLARGINE 100 UNITS/ML SQ SCH (20:47)
[2021-07-11] MEDS: dexAMETHasone 4 MG/ML VIAL IV SCH ×3 (00:31→16:16)
[2021-07-11] MEDS: METOPROLOL TARTRATE 5 MG/5 ML INJ IV PRN ×2 (03:12→18:58)
[2021-07-11] MEDS: Meropenem 1 GM/100 ML BAG IV SCH ×3 (04:09→20:21)
[2021-07-11 05:18] LABS: Hematocrit 36.2 % (39.6-49.0); MPV 9.2 fL (7.6-11.3); RBC Red Blood Cell Count 4.16 M/uL (4.33-5.43)
[2021-07-11 05:19] LABS: Absolute Lymphocytes (CBC) 0.6 K/uL (0.7-4.9); Basophils % 0.3 % (0-1.3)
[2021-07-11 05:38] LABS: ALT/SGPT 55 U/L (12-78); AST/SGOT 56 U/L (15-37); Albumin 1.9 g/dL (3.4-5.0); Alkaline Phosphatase 117 U/L (45-117); BUN Blood Urea Nitrogen 59 mg/dL (7-18); Bicarbonate 29 mmol/L (21-32); Bilirubin Total 0.5 mg/dL (0.2-1.0); C-Reactive Protein 4.69 mg/L (<3.00); Ferritin 1447.7 ng/mL (26-388); Glucose Level 165 mg/dL (74-106); Protein, Total 5.1 g/dL (6.4-8.2); Sodium Level 150 mmol/L (136-145)
[2021-07-11] MEDS: INSULIN -REGULAR HUMAN 50 UNIT/0.5 ML ML SQ SCH ×4 (05:53→23:22)
--- NOTE | 2021-07-11 05:55 | P.PN ---
Date of Service: 07/11/21 Subjective: Patient without any new complaints, states he feels about the same nursing report intermittent confusion, pulled dobhoff yesterday ROS: review of systems difficult to fully obtain, denies new issues Physical exam GEN: Anxious appearing, NAD, gives me a thumbs up HEENT: Normal conjunctiva, sclera anicteric, BIPAP in place CV: Sinus tachycardia, no edema Pulm: labored respirations on BiPAP ABD: Soft, nontender, nondistended Integumentary: No rash Neuro: anxious, moves all extremities, hard of hearing Assessment/plan: Acute hypoxemic respiratory failure secondary to COVID-19 pneumonia Possible bacterial superinfection/pneumonia Hyponatremia, suspect acute; mild HTN Diabetes mellitus type II, [id number] Hearing loss, chronic Sinus tachycardia Hypertension DARCIE, no history of CKD Anxiety Acute delirium continue steroids, vitamins, anticoagulation, baricitinib Completed 7 days of Levaquin, cultures without growth. Rocephin started by pulm on 07/06, broadened to meropenem on 07/06. Concern for bacterial superinfection. Patient worsening overnight 07/05-07/06 07/06 blood culture - gram stain GPC+, vanc added 07/07, f/u results. repeat cultures obtained, initial CONS, repeat with GPC again Pulmonology following morphine for anxiety / air hunger, improved somewhat with ativan h/o hypertension, has been hypotensive, dc'd amlodipine (07/05) with improvement. Continue metoprolol for tachycardia as BP allows. Nephrology started phenylephrine for blood pressure, so low use of metoprolol Wean oxygen as tolerated. PICC and TPN placed/started on 07/08, Dobbhoff placed 07/09, continue tube feeds and replaced last night after patient pulled it DARCIE, likely prerenal, with mild hyponatremia. Nephrology consulted. Received small fluid bolus and Lasix on 07/05, improved. Patient now with hypernatremia VTE: DOAC Code: full Dispo: guarded prognosis updated yesterday Total time spent managing patient's care: 35 min
[2021-07-11] MEDS ORDERED: FLUCONAZOLE 400 MG IVPB 400 MG/200 ML BAG IV SCH (09:00)
[2021-07-11] MEDS: FINASTERIDE 5 MG TAB PO SCH (09:36)
[2021-07-11] MEDS: FAMOTIDINE 20 MG/2 ML VIAL IV SCH (09:36)
[2021-07-11] MEDS: THIAMINE HCL 100 MG TABLET PO SCH (09:36)
[2021-07-11] MEDS ORDERED: D5W 1,000 ML IV SCH (10:00)
[2021-07-11] MEDS: MORPHINE 2 MG/ML SYR IV PRN (10:55)
[2021-07-11 11:00] LABS: Anisocytosis SLIGHT; Blood Morphology Comment NOTED (NOT SEEN); Platelet Estimate ADEQ
--- NOTE | 2021-07-11 12:00 | P.PN ---
Subjective Date of Service: 07/11/21 Primary Care Provider: Hospitalist Dr. Solorzano Chief Complaint: Covid Pneumonia/ hypoxia Condition stable still requiring high concentrations of oxygen on BiPAP alert responsive Review of Systems Respiratory: Shortness of Breath Physical Examination - Vital Signs Temperature: 96.2 F Blood Pressure: 100/64 Pulse: 128 Respirations: 37 Pulse Ox (%): 96 - Physical Exam General: Alert, Cooperative Assessment & Plan - Problems (Diagnosis) (1) Pneumonia due to coronavirus disease 2019 Current Visit: Yes Status: Acute Plan: Respiratory failure condition stable very hypoxic tolerating tube feeds White count very elevated have added Diflucan patient is on vancomycin meropenem [facility] to address this he was given some IV fluid prognosis poor
[2021-07-11] MEDS: HYDROMORPHONE HCL 1 MG/ML INJ IV PRN ×2 (13:24→18:21)
[2021-07-11] MEDS ORDERED: BISACODYL E.C. 5 MG TAB PO ONE (14:53)
[2021-07-11] MEDS ORDERED: BISACODYL 10 MG RECTAL SUPP PR ONE ×2 (14:58→17:00)
[2021-07-11] MEDS: BARICITINIB 2 MG TABLET PO SCH (16:04)
[2021-07-11] MEDS: RIVAROXABAN 20 MG TABLET PO SCH (16:16)
--- NOTE | 2021-07-11 19:16 | RAD REPORT ---
EXAM DESCRIPTION: RAD - Abdomen 1 View (KUB) - 07/11/2021 6:32 pm CLINICAL HISTORY: dobhoff placement COMPARISON: Abdomen 1 View (KUB) dated 07/09/2021; Abdomen 1 View (KUB) dated 07/08/2021 FINDINGS: Feeding tube has been removed since the prior examination. OG/ NG tube is now in place. Ti p and side port of the tubing within the lumen of the nondilated stomach. Air is present filling but not dilating the colon. IMPRESSION: OG/ NG tube has been placed with tip and side port of the tubing well-positioned within the lumen of the nondilated stomach.
[2021-07-11] MEDS: INSULIN GLARGINE 100 UNITS/ML SQ SCH (20:21)
[2021-07-12 00:09] VITALS: TEMP 97.3
[2021-07-12] MEDS: dexAMETHasone 4 MG/ML VIAL IV SCH (00:10)
[2021-07-12 00:13] VITALS: BP 81/62
[2021-07-12] MEDS ORDERED: Phenylephrine HCl 10 MG/ML 1 ML VIAL ONE (01:07)
[2021-07-12] MEDS ORDERED: D5W 250 ML IV ONE (01:07)
[2021-07-12] MEDS ORDERED: RSI MEDICATION KIT IV ONE (01:19)
[2021-07-12] MEDS ORDERED: EPINEPHrine 1 MG/10 ML SYR IV ONE (03:44)
[2021-07-12] MEDS ORDERED: Caclcium Chloride 10% INJ SYR IV ONE (03:44)
[2021-07-12 03:46] VITALS: O2SAT 91
--- NOTE | 2021-07-12 12:53 | PN ---
Date of Progress Note: 07/11/2021 Chief Complaint: COVID pneumonia, respiratory failure, hypernatremia, hyperosmolar. History: Patient was on TPN, which was discontinued and patient was started on Glucerna and free mai er with tube feeding. The patient was found to have hypernatremia. Today, sodium was 150 and he was started on IV D5W. Review of Systems: Patient is awake, alert. Normal respiratory effort, noncyanotic. Impression And Plan: 1.Acute kidney injury, multifactorial secondary to prerenal azotemia superimposed with SAGAR inhibitor . Renal function has improved. 2.Hypernatremia. Patient will continue D5W. Monitor electrolytes. 3.Hypertension, controlled. 4.Hyperkalemia and COVID pneumonia. Patient is on high oxygen demand protocol and is followed by lmonary and primary team. EB/MODL Voice ID: [id number] Report ID: [id number]
== END 2021-07-12 03:45 | disposition expired | DRG 177 ==
LOC: ER 14:37 → ERHOLD 17:10 → 4TH 19:29 → 3RD-ICU 06-29 07:50
PROVIDERS: ADMIT Hospitalist; ATTEND Internal Medicine
PROC: 5A09457 Assistance with Respiratory Ventilation, 24-96 Consecutive Hours, Continuous Positive Airway Pressure (ICD-10-PCS; principal; 2021-07-06)
PROC: 0T9B70Z Drainage of Bladder with Drainage Device, Via Natural or Artificial Opening (ICD-10-PCS; 2021-07-06)
PROC: 02HV33Z Insertion of Infusion Device into Superior Vena Cava, Percutaneous Approach (ICD-10-PCS; 2021-07-07)
PROC: 0BH17EZ Insertion of Endotracheal Airway into Trachea, Via Natural or Artificial Opening (ICD-10-PCS; 2021-07-12)
PROC: 5A12012 Performance of Cardiac Output, Single, Manual (ICD-10-PCS; 2021-07-12)
DX: U07.1 COVID-19 (principal); J12.82 Pneumonia due to coronavirus disease 2019; J96.01 Acute respiratory failure with hypoxia; N17.0 Acute kidney failure with tubular necrosis; A41.9 Sepsis, unspecified organism; I46.9 Cardiac arrest, cause unspecified; E87.1 Hypo-osmolality and hyponatremia; E87.0 Hyperosmolality and hypernatremia; K92.2 Gastrointestinal hemorrhage, unspecified; E11.9 Type 2 diabetes mellitus without complications; I10 Essential (primary) hypertension; E87.8 Other disorders of electrolyte and fluid balance, not elsewhere classified; H91.90 Unspecified hearing loss, unspecified ear; R00.0 Tachycardia, unspecified; E78.5 Hyperlipidemia, unspecified; E87.5 Hyperkalemia; R41.0 Disorientation, unspecified
CPT/HCPCS: 36415; 36569; 71045; 71275; 74018; 76770; 80048; 80053; 80061; 80069; 80076; 80202; 81003; 81015; 82533; 82570; 82728; 82805; 82947; 83605; 83690; 83735; 83930; 83935; 84100; 84132; 84145; 84156; 84295; 84300; 84439; 84443; 84484; 84550; 85025; 85027; 85379; 85610; 85730; 86140; 87040; 87070; 87081; 87086; 87088; 87205; 87804; 93005; 94002; 94003; 94660; 94760; 96360; 96361; 99285; J0171; J0360; J0696; J1100; J1170; J1450; J1630; J1815; J1940; J2185; J2270; J2370; J2920; J3370; J3486; J7030; J7040; J7050; J7060; J8540; Q9967; U0003